=== PATIENT | male | born 1970 | race Caucasian/White ===

== ENCOUNTER 2023-12-13 19:36 | Inpatient (IN) | payer OTHER, SELFPAY ==
[2023-12-13] VITALS (8 sets, daily range): BP systolic 121–133; BP diastolic 73–80; BMI 30.7; BMI 29.4
[2023-12-13 11:58] LABS: % Basophils 0.5 % (0-2); % Eosinophils 43.6 % (0-6); % Immature Granulocytes 0.4 % (0-0.5); % Monocytes 4.7 % (1.7-9.3); % Neutrophils 41.8 % (42.2-75.2); Absolute Basophils 0.1 10^3/uL (0-0.2); Absolute Eosinophils 8.2 10^3/uL (0-0.7); Absolute Immature Granulocytes 0.1 10^3/uL (0-0.05); Absolute Lymphocytes 1.7 10^3/uL (1.2-3.4); Absolute Monocytes 0.9 10^3/uL (0.1-0.6); Absolute Neutrophils 7.9 10^3/uL (1.4-6.5); Hematocrit 40.5 % (39.0-52.0); Hemoglobin 13.7 g/dL (13.0-18.0); Mean Corp Hgb Conc. 33.8 g/dL (33.0-37.0); Mean Corpuscular Hgb 29.9 pg (27.0-31.0); Mean Corpuscular Volume 88.4 fL (80.0-94.0); Mean Platelet Volume 9.1 fL (7.4-10.4); Nucleated Red Blood Cells % 0 % (-); Platelet Count 356 10^3/uL (130-400); Red Blood Cell Count 4.58 10^6/uL (4.70-6.10); Red Cell Dist. Width 13.8 % (11.5-14.5); White Blood Cell Count 18.9 10^3/uL (4.8-10.8)
[2023-12-13 12:20] LABS: ALT (SGPT) 54 U/L (0-50); AST (SGOT) 53 U/L (17-59); Albumin 3.5 g/dl (3.5-5.0); Alkaline Phosphatase 77 U/L (38-126); Blood Urea Nitrogen 14 mg/dl (9-20); Calcium 8.9 mg/dl (8.4-10.2); Carbon Dioxide 26 mmol/L (22-30); Chloride 101 mmol/L (98-107); Glucose 115 mg/dl (70-99); Potassium 4.4 mmol/L (3.5-5.1); Sodium 133 mmol/L (135-145); Total Bilirubin 1.8 mg/dl (0.2-1.3); Total Protein 6.5 g/dl (6.3-8.2); eGFR > 60.00
--- NOTE | 2023-12-13 13:57 | ED.GENMED ---
History of Present Illness
General
Chief Complaint: Numbness
Time Seen by Provider: 12/13/23 13:42
Travel History
Have you had any contact with someone who has COVID-19?: No
Do you have any symptoms of coronavirus? Fever > 100 degrees, chills, cough, shortness of breath, sore throat, loss of taste or smell, muscle aches, or headache?: No
History of Present Illness
History of Present Illness:
53-year-old previously healthy male presents to the emergency department for evaluation of left hand numbness and weakness developing abruptly upon awakening at 2 AM today. He states initially it felt as though his arm and falling asleep however
the symptoms have not resolved. He does report left elbow discomfort as well. He relates a recent history of lower extremity fatigue and muscular weakness that has progressively worsened over the past 4 weeks. He states that he had to take
several breaks when ambulating across the hospital parking lot today. He has been seeing his primary care physician for this and was referred to a neurologist however has not been able to schedule appointment as of yet. He also notes for the past
6 to 8 months a history of recurrent sinusitis, most recent bout of this was early October. He has been treated with corticosteroids 8-9 times over the past 6 months.
Past History
Social History
Tobacco: Non-smoker
Living: with family
Employment: Employed
Review of Systems
Review of Systems
Allergies reviewed?: Yes
All Other Systems: ROS reviewed and negative except as documented in HPI and ROS
Phy Exam
Physical Exam
Physical Exam:
GEN: Well appearing, NAD, WDWN
HEENT: Oral mucosa moist, no scleral icterus, no nasal congestion
Cardiac: Regular rate
Lung: No respiratory distress, no tachypnea
MSK: No gross deformity or injuries
Skin: Good color, no pallor or jaundice, no rashes
Neuro: AO x3; CN II-XII grossly intact.
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
BLE strength: Hip flexors 4/5 bilat, all other mas 5/5 flexion/extension and symmetric
Reflexes: 1+ R patellar, 2+ L patellar
Sensation: Intact in all mas to light touch
Psych: Calm, cooperative
Course
Orders/Labs/Results
Orders:
Orders
12/13/23 11:51
C-Reactive Protein Urgent
Comment: ADD ON
CBC/With Diff [Complete Blood Count/With Diff] Urgent
CMP [Comprehensive Metabolic Panel] Urgent
Creatine Phosphokinase Urgent
Comment: ADD ON
Ferritin Routine
Comment: ADD ON
Folate Routine
Comment: ADD ON
TSH Reflex To Free T4 Routine
Comment: ADD ON
Vitamin B12 Routine
Comment: ADD ON
12/13/23 13:57
CT Head W/o Iv Contrast Urgent
Comment:
Reason For Exam: BLE/L arm weakness
12/13/23 15:28
Add On- LAB Routine
Tests Added?: folate, ferritin, TSH reflex
12/13/23 15:37
Consult Neurology [NEUROLOGY CONSULT] Urgent
Consulting Provider: Leonel Mike
Was physician already notified: Yes
Immune Globulin Per Pharmacy [Immune Globulin- Pharmacy To Place] 1 gram IV DIRECTED ONE
EMG [Electromyography] Routine
Reason for Exam: ? GBS
12/13/23 15:41
IRAD Cytology Routine
Date Specimen was Collected: 12/13/23
Time Specimen was Collected: 17:18
Source: CSF
Clinical Impression: AIRCRAFT CABIN CLEANER Lymphoma
12/13/23 15:42
Lorazepam [Ativan] 1 mg PO NOW STA
12/13/23 15:51
Add On- LAB Routine
Comments:: Please add to today's labs or draw as routine
Tests Added?: CRP, ANCA, MARILYN, ss-a, ss-B, CPK, Acetylchol office manager receptionist antibodies
12/13/23 16:00
MethylPREDNISolone. [Solu-Medrol] 1,000 mg 0.9% Sodium Chloride 250 ml [Nss] 250 ml IV Q24H
12/13/23 17:17
Lyme PCR, DNA [S] Urgent
Paraneoplastic Ab IgG, CSF [S] Urgent
12/13/23 17:20
Acid Fast Culture & Smear Urgent
RAJANI Source: C[facility]
Specimen Description:
Date Specimen was Collected: 12/13/23
Time Specimen was Collected: 17:18
CSF Cell Count Urgent
Date Specimen was Collected: 12/13/23
Time Specimen was Collected: 17:18
CSF Tube Number: 4
CSF Cell Count X Urgent
Date Specimen was Collected: 12/13/23
Time Specimen was Collected: 17:18
CSF Tube Number: 4
CSF VDRL Reflex To Titer [S] Urgent
Date Specimen was Collected: 12/13/23
Time Specimen was Collected: 17:18
CSF Tube Number: 2
Oligoclonal Band Profile [S] Urgent
Date Specimen was Collected: 12/13/23
Time Specimen was Collected: 17:18
CSF Tube Number: 2
Spinal Fluid Glucose Urgent
Date Specimen was Collected: 12/13/23
Time Specimen was Collected: 17:19
CSF Tube Number: 2
Spinal Fluid Protein Urgent
Date Specimen was Collected: 12/13/23
Time Specimen was Collected: 17:19
CSF Tube Number: 2
CSF Culture with Gram Stain Urgent
RAJANI Source: Csf
Specimen Description:
Date Specimen was Collected: 12/13/23
Time Specimen was Collected: 17:18
# of Tube: 3
Fungus Culture Urgent
RAJANI Source: Csf
Specimen Description:
Date Specimen was Collected: 12/13/23
Time Specimen was Collected: 17:18
12/13/23 17:50
MARILYN, IgG Reflex to HEp-2 [S] Urgent
ANCA - MPO/PR3 Ab Profile [S] Urgent
Acetylcholine Receptor Bind Ab [S] Urgent
SSA 52 and 60 (Ro)(JOSE) Ab,IgG [S] Urgent
SSB ([place])(JOSE) Ab, IgG [S] Urgent
12/13/23 18:00
Immune Globulin 30 Grams/300Ml [Gammagard] 30 grams in 300 ml IV PER PROTOCOL
12/13/23 18:43
Admit/Transfer Patient As Directed
Co-Sign Provider:
Level of Care: Inpatient admission
Assign to:: Telemetry
Physician / Group: hospitalist-Ruth
Diagnosis: GBS
Reason for Telemetry: Arrhythmia
Date to Stop Telemetry: 12/16/23
Time to Stop Telemetry: 11:00
Reason for Hospitalization: IVIG, pulse dose steroids, PT/OT
Expected length of stay greater than two midnights?: Yes
ELOS- Estimated Length of Stay in days: 4
I certify the patient meets the requirements for IP care: Yes
12/13/23 18:48
Code Status As Directed
Resuscitation Status: Full Code
12/14/23 18:00
Immune Globulin 30 Grams/300Ml [Gammagard] 30 grams in 300 ml IV PER PROTOCOL
12/15/23 18:00
Immune Globulin 30 Grams/300Ml [Gammagard] 30 grams in 300 ml IV PER PROTOCOL
12/16/23 11:00
DC Protocol for Telemetry ONCE
12/16/23 18:00
Immune Globulin 30 Grams/300Ml [Gammagard] 30 grams in 300 ml IV PER PROTOCOL
12/17/23 18:00
Immune Globulin 30 Grams/300Ml [Gammagard] 30 grams in 300 ml IV PER PROTOCOL
Abnormal Lab Results
12/13/23
11:51
WBC 18.9 H 10^3/uL
(4.8-10.8)
RBC 4.58 L 10^6/uL
(4.70-6.10)
Abs Immat Gran (auto) 0.1 H 10^3/uL
(0-0.05)
Absolute Neuts (auto) 7.9 H 10^3/uL
(1.4-6.5)
Absolute Monos (auto) 0.9 H 10^3/uL
(0.1-0.6)
Absolute Eos (auto) 8.2 H 10^3/uL
(0-0.7)
Neutrophils % 41.8 L %
(42.2-75.2)
Lymphocytes % 9.0 L %
(20.5-51.1)
Eosinophils % 43.6 H %
(0-6)
Sodium 133 L mmol/L
(135-145)
Creatinine 0.6 L mg/dL
(0.7-1.3)
Glucose 115 H mg/dl
(70-99)
Ferritin 508.0 H ng/ml
(17.9-464.0)
Total Bilirubin 1.8 H mg/dl
(0.2-1.3)
ALT 54 H U/L
(0-50)
C-Reactive Protein 66.00 H mg/L
(0.0-10.00)
12/13/23 11:51
12/13/23 11:51
Vital Signs
Initial and Last Documented VS:
Initial Vital Signs
Temp Pulse Resp BP Pulse Ox
98.3 F 111 16 128/77 98
12/13/23 11:34 12/13/23 11:34 12/13/23 11:34 12/13/23 11:34 12/13/23 11:34
Last Documented Vital Signs
Temp Pulse Resp BP Pulse Ox
98.2 F 97 22 133/79 98
12/13/23 19:46 12/13/23 20:45 12/13/23 20:45 12/13/23 20:00 12/13/23 11:34
Procedures
Lumbar Puncture
Indication for procedure:: polyneuropathy/diagnostic
Procedure completed by: Aniket Webber PA-C
Consent form signed: Yes
Anesthesia/sedation: 1% Lidocaine
Preparation: cleaned with Betadine
Position: sitting
Needle Size: 18 gauge
Needle Type: Lumbar Needle
Number of attempts: 1
Dressing applied to puncture site: bandaid
Complications: none
Additional information:
16mL obtained for diagnostic purposes
Pt instructed to lie supine for 60 minutes post procedure
MDM/Problems Addressed
MDM/Problems Addressed:
Etiology to the patient's neuropathy is not clear at this time. Neurology was consulted and saw the patient in the emergency department. Lumbar puncture was performed by myself at the bedside with good results. Will be admitted to the hospitalist
service for further treatment pending results of testing
*Critical Care Note
Total Time (30-74mins, 75-104mins- exclusive of procedures): Not Applicable
ED Attending Note
-
Portions of this chart may have been created with voice recognition software.� Occasional wrong word or��sound alike� substitutions may have occurred due to the inherent limitations of voice recognition software.
Discharge Plan
Departure
Patient Disposition: Admit
Date of Disposition: 12/13/23
Time of Disposition: 17:26
Admit to: Med/Surg
Presentation/result/management discussed w/ accepting MD/DO: Hospitalist
Patient with high blood pressure during this ER visit?: No
Discharge Problem:
Polyneuropathy
Interventions
Interventions:
*Risk Screen - Suicide Last Done: 12/13/23 17:07
*General Assessment Last Done: 12/13/23 17:07
*Neglect/Abuse Screening Last Done: 12/13/23 17:07
ED- Fall Risk Assessment Last Done: 12/13/23 17:07
*ED COVID-19 Vaccine History Last Done: 12/13/23 17:07
ED- Neurological Assessment Last Done: 12/13/23 17:07
--- NOTE | 2023-12-13 15:01 | CON.NEURO4 ---
Addendum entered and electronically signed by Leonel Mike MD 12/13/23 17:00:
Studies reviewed.
I have personally examined the patient. I reviewed and agree with the ORNITHOLOGY TEACHER's Note.
My addenda:
Awake, alert, interactive. No acute distress.
Speech intact.
Follows 2-step requests w/o difficulty. No tremor.
Extra-ocular movements grossly intact.
Facial movements full and symmetric. Hearing intact to normal conversational volume.
Normal UE movements bilaterally.
Reflexes absent at AJ, trace otherwise
Neck: full ROM.
Chest: no dyspnea
Heart: no JVD
Ext: (-) Clubbing, (-) Cyanosis, (-) Edema
IMPRESSIONS/RECOMMENDATIONS:
Abrupt onset of bilateral lower extremity weakness with length-dependent loss of large and small fiber sensation, subjective weakness which worsens with muscle use
check blood work for metabolic causes
consider MRI of brain due to nystagmus on exam with multiple positions
check EMG for nerve dysfunction, consider repetitive stimulation EMG
check LP with goal of protein and cells, check paraneoplastic causes
start Methylprednisolone 1 gm IV daily x 5
start IV IgG 0.4 mg/kg/day x 5 days
rehab evaluations
DVT prophylaxis
D/W patient / family / nursing
All questions answered.
Will continue to follow patient.
Original Note:
Documented by User: Tennille Hooper NP 12/13/23 16:33
Consultation - Neurology 4
-
CONSULTING PHYSICIAN: Leonel Mike MD
REFERRING PHYSICIAN: ER/Aniket Webber PA-C
DICTATED BY: NATTY Leger
DATE/TIME OF REQUEST: 12/13/23
DATE/TIME OF CONSULTATION: 12/13/23
Reason for Consultation: Weakness and numbness
History of Present Illness:
This is a 53-year-old right-handed male who has presented to the hospital with report of acute left hand numbness. Patient reports that starting in May 2023 he developed post-nasal drip that led to frequent sinusitis and lung infections, and a
diagnosis of adult-onset asthma. He has been on steroid treatments 9 times since May 2023. At the end of October 2023, he reports having another sinus infection and feeling unwell. He went on vacation with his family on 11/14/23 and reports new
onset extreme leg fatigue that day after walking an 18 [address]. The following days he reports walking significant distances and by 11/19/23 he had to use a golf cart because his legs felt too weak to walk more than short distances. The
weakness started in both legs at the same time, equally. In particular, his quadriceps and calf muscles feel weak. He cannot walk up a flight of steps without a grab rail to pull himself up with. He also reports developing numbness in both feet that
does not extend up the legs. He reports noticing some upper extremity weakness about two weeks ago, but this is much less prominent than his leg weakness. He denies any swallowing issues, but reports when all of his symptoms started he noticed
extreme acid reflux and has been on Prilosec, which has helped. Last night at 0200 (12/13/23) he woke up in the middle of the night due to left entire hand tingling. He has had his arm fall asleep 4x in his life while sleeping, but it usually
resolves in a timely manner, and this time is has persisted. It does not spread up the arm. He denies any overt hand weakness but cannot feel objects as well. No symptoms in his right hand. He denies any headache, dizziness, vision changes,
difficulty with bowel/bladder, speech difficulty, chest pain, palpitations, and shortness of breath. He denies any cramping, falls, or feeling off-balance. He has been undergoing an extensive outpatient workup by his PCP and reports a Lyme test has
been negative x2. [facility] outpatient labs from 11/22/23: HbA1c 5.8, vitamin B12 692, ESR 9.
Past Medical History: Moderate persistent adult-onset asthma, leukocytosis, elevated ALT, elevated hbA1c
Surgical History: Nasal polypectomy 2020
Family History: Reviewed and noncontributory.
Social History: Denies tobacco and illicit drug use. Occasional alcohol.
Allergies: No known allergies.
Home Medications: See below.
Review of Symptoms:
Patient denies any fever, headache, chest pain, shortness of breath, GI or symptoms.
�Per the HPI.�All systems are reviewed negative except above.
Physical Exam:
The patient is afebrile, abdomen is nondistended, breathing is unlabored, skin is warm and dry, no edema.
Neurologic Examination:
The patient is awake, alert and oriented x 3. He is able to follow commands and answer questions appropriately. There is no aphasia or dysarthria. On cranial nerve assessment, pupils are 3 mm bilateral, round and reactive to light and
accommodation. Visual mas are full. Extraocular movements are intact. +Nystagmus with upgaze and downgaze. Facial sensations are intact and bilaterally symmetrical, there is no facial asymmetry. Hearing is intact bilaterally to normal
conversation volume. Tongue palate and uvula are midline. No tongue fasciculations. Sternocleidomastoid strengths are full bilaterally. Motor strengths are 5/5 bilateral upper and lower extremities on medical research [place] scale. There is no
drift or involuntary movement noted. Deep tendon reflexes are 2+ bilateral upper, +2 patellar, and 1+ bilateral Achilles, and Babinski is absent bilaterally. Sensations vibration absent in bilateral toes, mildly diminished in bilateral knees. Pain
absent in distal toes. Cold intact. Vibration and cold intact in bilateral hands. There was no extinction noted on double simultaneous stimulation. Coordination is intact by finger to nose bilaterally.
Lab Results: See below.
Neuro Imaging: None
Differentials for the patient's presentation include:
1. Concern for Guillain [place]
2. Steroid myopathy possible but less likely
3. Chronic upper and lower respiratory infections, leukocytosis.
4. Nystagmus, unclear cause
5. Paraneoplastic syndrome possible
6. Myasthenia gravis less likely but possible
Patient has the following risk factors for their symptoms: Frequent infections, steroid usage
Recommendations:
-Start methylprednisone 1000mg IV daily x5 days
-Start IVIG 0.4mg/kg x5 days
-Lumbar puncture pending
-EMG ordered/pending
-If results are unremarkable, will obtain MRI brain w/and w/o contrast
-Checking acetylcholine receptor and MUSK antibodies
-PT/OT/ST evaluations
-DVT prophylaxis
-Will follow.
Discussed patient care with: Dr. Mike, the patient
Vital Signs and Labs
-
Vital Signs and Labs:
Vital Signs
Temp Pulse Resp BP Pulse Ox
98.3 F 100 15 130/73 98
12/13/23 11:34 12/13/23 14:45 12/13/23 14:45 12/13/23 14:02 12/13/23 11:34
Lab Results
12/13/23 11:51
12/13/23 11:51
Sodium 133 mmol/L (135-145) L 12/13/23 11:51
Potassium 4.4 mmol/L (3.5-5.1) 12/13/23 11:51
BUN 14 mg/dl (9-20) 12/13/23 11:51
Glucose 115 mg/dl (70-99) H 12/13/23 11:51
Calcium 8.9 mg/dl (8.4-10.2) 12/13/23 11:51
Medications
-
Active Medications
Generic Name Dose Route Start Last Admin
Trade Name Freq PRN Reason Stop Dose Admin
Methylprednisolone Sodium 258 mls @ 258 mls/hr 12/13/23 16:00
Succinate 1,000 mg/ Sodium IV 12/17/23 16:59
Chloride Q24H LINO
Immune Globulin 30 grams in 300 mls @ 0 mls/hr 12/13/23 18:00
Gammagard IV 12/14/23 17:59
PER PROTOCOL LINO
Protocol
Per Protocol
Immune Globulin 30 grams in 300 mls @ 0 mls/hr 12/14/23 18:00
Gammagard IV 01/11/24 17:59
PER PROTOCOL LINO
Protocol
Per Protocol
Immune Globulin 30 grams in 300 mls @ 0 mls/hr 12/15/23 18:00
Gammagard IV 01/12/24 17:59
PER PROTOCOL LINO
Protocol
Per Protocol
Immune Globulin 30 grams in 300 mls @ 0 mls/hr 12/16/23 18:00
Gammagard IV 01/13/24 17:59
PER PROTOCOL LINO
Protocol
Per Protocol
Immune Globulin 30 grams in 300 mls @ 0 mls/hr 12/17/23 18:00
Gammagard IV 01/14/24 17:59
PER PROTOCOL LINO
Protocol
Per Protocol
Home Medications
Medication Instructions Recorded
albuterol sulfate 2.5 mg/3 mL 2.5 mg inhalation R TID 12/13/23
(0.083 %) solution for nebulization Lung/Breathing Issues
albuterol sulfate 90 mcg/actuation 2 puff inhalation Q6HPRN PRN 12/13/23
aerosol inhaler shortness of breath
budesonide 0.5 mg/2 mL suspension 0.5 mg inhalation R BID 12/13/23
for nebulization Lung/Breathing Issues
montelukast 10 mg tablet 10 mg PO QPM Allergies 12/13/23

Documented by User: Leonel Mike MD 12/13/23 16:45
Consultation - Neurology 4
-
CONSULTING PHYSICIAN: Leonel Mike MD
REFERRING PHYSICIAN: ER/Aniket Webber PA-C
DICTATED BY: NATTY Leger
DATE/TIME OF REQUEST: 12/13/23
DATE/TIME OF CONSULTATION: 12/13/23
Reason for Consultation: Weakness and numbness
History of Present Illness:
This is a 53-year-old right-handed male who has presented to the hospital with report of acute left hand numbness.
Patient reports that starting in May 2023 he developed post-nasal drip that led to frequent sinusitis and lung infections, and a diagnosis of adult-onset asthma. He has been on steroid treatments 9 times since May 2023.
At the end of October 2023, he reports having another sinus infection and feeling unwell. He went on vacation with his family on 11/14/23 and reports new onset extreme leg fatigue that day after walking an 18 [address]. The following days he
reports walking significant distances and by 11/19/23 he had to use a golf cart because his legs felt too weak to walk more than short distances.
The weakness started in both legs at the same time, equally. In particular, his quadriceps and calf muscles feel weak. He cannot walk up a flight of steps without a grab rail to pull himself up with. He also reports developing numbness in both feet
that does not extend up the legs. He reports noticing some left upper extremity weakness about two weeks ago, but this is much less prominent than his leg weakness.
Last night at 0200 (12/13/23) he woke up in the middle of the night due to left entire hand tingling. He has had his arm fall asleep 4x in his life while sleeping, but it usually resolves in a timely manner, and this time is has persisted. It does
not spread up the arm. He denies any overt hand weakness but cannot feel objects as well. No symptoms in his right hand. He has been undergoing an extensive outpatient workup by his PCP and reports a Lyme test has been negative x2. [facility] outpatient
labs from 11/22/23: HbA1c 5.8, vitamin B12 692, ESR 9.
He denies any swallowing issues, but reports when all of his symptoms started he noticed extreme acid reflux and has been on Prilosec, which has helped. He denies any headache, dizziness, vision changes, difficulty with bowel/bladder, speech
difficulty, chest pain, palpitations, and shortness of breath. He denies any cramping, falls, or feeling off-balance.
Past Medical History: Moderate persistent adult-onset asthma, leukocytosis, elevated ALT, elevated hbA1c
Surgical History: Nasal polypectomy 2020
Family History: Reviewed and noncontributory.
Social History: Denies tobacco and illicit drug use. Occasional alcohol.
Allergies: No known allergies.
Home Medications: See below.
Review of Symptoms:
Patient denies any fever, headache, chest pain, shortness of breath, GI or symptoms.
�Per the HPI.�All systems are reviewed negative except above.
Physical Exam:
The patient is afebrile, abdomen is nondistended, breathing is unlabored, skin is warm and dry, no edema.
Neurologic Examination:
The patient is awake, alert and oriented x 3. He is able to follow commands and answer questions appropriately. There is no aphasia or dysarthria. On cranial nerve assessment, pupils are 3 mm bilateral, round and reactive to light and
accommodation. Visual mas are full. Extraocular movements are intact. +Nystagmus with upgaze and downgaze. Facial sensations are intact and bilaterally symmetrical, there is no facial asymmetry. Hearing is intact bilaterally to normal
conversation volume. Tongue palate and uvula are midline. No tongue fasciculations. Sternocleidomastoid strengths are full bilaterally. Motor strengths are 5/5 bilateral upper and lower extremities on medical research [place] scale. There is no
drift or involuntary movement noted. Deep tendon reflexes are 2+ bilateral upper, +2 patellar, and 1+ bilateral Achilles, and Babinski is absent bilaterally. Sensations vibration absent in bilateral toes, mildly diminished in bilateral knees. Pain
absent in distal toes. Cold intact. Vibration and cold intact in bilateral hands. There was no extinction noted on double simultaneous stimulation. Coordination is intact by finger to nose bilaterally.
Lab Results: See below.
Neuro Imaging: None
Differentials for the patient's presentation include:
1. Concern for Guillain [place]
2. Steroid myopathy possible but less likely
3. Chronic upper and lower respiratory infections, leukocytosis.
4. Nystagmus, unclear cause
5. Paraneoplastic syndrome possible
6. Myasthenia gravis less likely but possible
Patient has the following risk factors for their symptoms: Frequent infections, steroid usage
Recommendations:
-Start methylprednisone 1000mg IV daily x5 days
-Start IVIG 0.4mg/kg x5 days
-Lumbar puncture pending
-EMG ordered/pending
-If results are unremarkable, will obtain MRI brain w/and w/o contrast
-Checking acetylcholine receptor and MUSK antibodies
-PT/OT/ST evaluations
-DVT prophylaxis
-Will follow.
Discussed patient care with: Dr. Mike, the patient
[2023-12-13] MEDS: ATIVAN 1 MG PO (16:03)
[2023-12-13] MEDS: SOLU-MEDROL 258 MG IV (17:39)
[2023-12-13 17:56] LABS: Spinal Fluid Glucose 55 mg/dl (40-70); Spinal Fluid Protein 47 mg/dl (12-60)
[2023-12-13 18:39] LABS: CSF Clarity Clear; CSF Color Colorless; CSF Tube # 4; White Cell Count/CSF 0 mm^3 (0-5)
[2023-12-13 18:41] LABS: CSF Color Colorless; CSF Tube # 1; CSF Tube # Clarity Clear; White Blood Cell Count/CSF 0 mm^3 (0-5)
[2023-12-13] MEDS: GAMMAGARD 300 IV (18:44)
--- NOTE | 2023-12-13 18:50 | HPS.HSE ---
Family Physician
-
Family Physician: Randy Aguero
Chief Complaint
-
Worsening numbness/weakness
History of Present Illness
Patient is a 53-year-old male who had no medical history until 3 years ago when he had nasal polyp surgery. Since October 25, 2023 the patient has had 8 sinus infections, postnasal drip and 9 treatments with prednisone. Patient describes that his
legs and feet are numb, his legs feel heavy. 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 Now he can only stand for approximately 3 minutes. He has not been at work since November 10. At 2 AM this morning, his left hand
became numb and did not improve. He states that he also has weakness of his upper extremities. He came in for evaluation and treatment.
Medical History
Past Medical History
Past Medical History: Reports Other
Additional Past Medical History:
Recurrent sinus infections with asthmatic exacerbation
Past Surgical History: Reports Other
Additional Past Surgical History:
Nasal polyp surgery
Social History
Tobacco: Non-smoker
Alcohol: Former (Patient states that he used to drink 1 sixpack per day up until October 25, 2023. After that he has not had any alcohol.)
Drug: None
Family History
Family History: Other (None per patient)
Allergies / Home Medications
Allergies reflects when Allergies were last updated in [employer].
Home Medications with original date entered in [employer]
Allergy/Medication List:
Allergies
Allergy/AdvReac Type Severity Reaction Status Date / Time
No Known Allergies Allergy Verified 12/13/23 11:34
Home Medications
albuterol sulfate 2.5 mg/3 mL (0.083 %) solution for nebulization 2.5 mg inhalation R TID Lung/Breathing Issues 12/13/23
albuterol sulfate 90 mcg/actuation aerosol inhaler 2 puff inhalation Q6HPRN PRN shortness of breath 12/13/23
budesonide 0.5 mg/2 mL suspension for nebulization 0.5 mg inhalation R BID Lung/Breathing Issues 12/13/23
montelukast 10 mg tablet 10 mg PO QPM Allergies 12/13/23
Review of Systems
-
History Source: Patient
A 12 point ROS was completed and negative except as noted: Yes
Constitutional: Denies Fever or Chills
EENT: Reports Other (Recurrent sinus infections)
Respiratory: Reports Cough and Trouble Breathing
Cardiac: Denies Chest Pain or Palpitations
Abdomen/GI: Denies Abdominal Pain, Nausea, Vomiting, Diarrhea or Constipated
: Reports No Symptoms; Denies Dysuria
Musculoskeletal: Denies Edema
Skin: Reports No Symptoms
Neurological: Reports Weakness (Heaviness to the legs, numbness to the arms)
Endocrine: Reports No Symptoms
Hematologic/Lymphatic: Reports No Symptoms
Psych: Reports No Symptoms
Physical Exam
Vital Signs
Vital Signs
Temp Pulse Resp BP Pulse Ox
98.3 F 103 18 130/73 98
12/13/23 11:34 12/13/23 16:15 12/13/23 16:15 12/13/23 14:02 12/13/23 11:34
Physical Exam
General: Well Developed, Well Nourished and No Apparent Distress
HEENT: NormoCephalic and Anicteric; No Oxygen
Respiratory: Rhonchi (Clears with coughing)
Cardiac: S1/S2 and Regular Rhythm; No Murmur
GI: Soft, Non Tender, Non Distended and Normal Bowel Sounds
Musculoskeletal: No Clubbing, No Cyanosis and No Edema
Skin: Warm and Dry; No Rash
Neuro: Awake and Alert; No Nonfocal/grossly intact (Decreased motor strength 3/5 x 4 extremities)
Psych: Calm
Laboratory Results
-
12/13/23 11:51
12/13/23 11:51
Laboratory Results
Total Bilirubin 1.8 mg/dl (0.2-1.3) H 12/13/23 11:51
AST 53 U/L (17-59) 12/13/23 11:51
ALT 54 U/L (0-50) H 12/13/23 11:51
Alkaline Phosphatase 77 U/L (38-126) 12/13/23 11:51
Impression/Plan
-
Patient is a 53-year-old male
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
neurology, lumbar puncture done--patient starting on IVIG and pulse dose Solu-Medrol--PT/OT/speech--will likely need EMG/nerve conduction study and MRI--consider physical medicine and rehab evaluation
Recurrent sinus infections status post nasal polyp surgery in the past--patient's ENT is in [place]--he sees Dr. Silva here for pulmonary--patient states that he is to take his nebulizers in a specific order (albuterol, 3% sodium chloride,
Pulmicort)--hold antibiotics for now--consider ENT evaluation if needed
DVT prophylaxis--Lovenox
CODE STATUS--full code
[2023-12-13 19:39] LABS: Red Cell Count/CSF 1 mm^3
[2023-12-13 19:41] LABS: TSH Reflex To Free T4 2.01 uIU/ml (0.47-4.68)
[2023-12-13 19:54] LABS: Red Cell Count/CSF 5 mm^3
[2023-12-13 20:17] LABS: Folate 11.7 ng/ml (2.76-20); Vitamin B12 518 pg/ml (239-931)
[2023-12-13] MEDS: DESYREL 100 MG PO (22:26)
[2023-12-13 22:38] LABS: Creatine Phosphokinase 984 U/L (55-170)
[2023-12-13] MEDS: PULMICORT 0.5 MG INH (22:50)
[2023-12-13] MEDS: VENTOLIN NEBULES 2.5 MG INH (22:50)
[2023-12-13] MEDS: SODIUM CHLORIDE 3% FOR INHALATION 1 VIAL INH (22:50)
[2023-12-14] VITALS (14 sets, daily range): BP systolic 115–135; BP diastolic 72–83; O2SAT 95; BMI 29.4
[2023-12-14] MEDS: SINGULAIR 10 MG PO ×2 (00:20→17:24)
[2023-12-14 05:46] LABS: % Basophils 0.3 % (0-2); % Eosinophils 2.3 % (0-6); % Immature Granulocytes 0.5 % (0-0.5); % Lymphocytes 12.4 % (20.5-51.1); % Monocytes 1.7 % (1.7-9.3); % Neutrophils 82.8 % (42.2-75.2); Absolute Eosinophils 0.2 10^3/uL (0-0.7); Absolute Lymphocytes 0.9 10^3/uL (1.2-3.4); Absolute Monocytes 0.1 10^3/uL (0.1-0.6); Absolute Neutrophils 6.2 10^3/uL (1.4-6.5); Hematocrit 37.3 % (39.0-52.0); Hemoglobin 12.7 g/dL (13.0-18.0); Mean Corpuscular Hgb 29.3 pg (27.0-31.0); Mean Corpuscular Volume 86.1 fL (80.0-94.0); Mean Platelet Volume 9.3 fL (7.4-10.4); Nucleated Red Blood Cells % 0 % (-); Platelet Count 336 10^3/uL (130-400); Red Blood Cell Count 4.33 10^6/uL (4.70-6.10); Red Cell Dist. Width 13.6 % (11.5-14.5); White Blood Cell Count 7.5 10^3/uL (4.8-10.8)
[2023-12-14 06:06] LABS: ALT (SGPT) 55 U/L (0-50); AST (SGOT) 39 U/L (17-59); Albumin 3.1 g/dl (3.5-5.0); Alkaline Phosphatase 72 U/L (38-126); Blood Urea Nitrogen 14 mg/dl (9-20); Calcium 9.2 mg/dl (8.4-10.2); Carbon Dioxide 26 mmol/L (22-30); Chloride 100 mmol/L (98-107); Estimated Creatinine Clearance > 125 ml/min; Glucose 170 mg/dl (70-99); Magnesium 2.3 mg/dl (1.6-2.3); Potassium 4.5 mmol/L (3.5-5.1); Sodium 135 mmol/L (135-145); Total Bilirubin 1.1 mg/dl (0.2-1.3); Total Protein 6.3 g/dl (6.3-8.2); eGFR > 60.00
[2023-12-14 06:28] LABS: Creatine Phosphokinase 709 U/L (55-170)
[2023-12-14 06:35] LABS: TSH 0.56 uIU/ml (0.47-4.68)
[2023-12-14 06:54] LABS: Vitamin B12 550 pg/ml (239-931)
--- NOTE | 2023-12-14 07:40 | PTCARENOTE ---
Patient arrived on unit @2231 via stretcher from ED. Patient ambulate from stretcher to bed. AAOx3 denies any pain or discomfort. Neurological check completed, skin assessment completed, oriented to unit. WOOD CALKER made aware of MSAS protocol that was
triggered, pt last drink was 10/25/23. WOOD CALKER okay with not initiating MSAS protocol.
[2023-12-14] MEDS: VENTOLIN NEBULES 2.5 MG INH ×3 (08:05→19:49)
[2023-12-14] MEDS: SODIUM CHLORIDE 3% FOR INHALATION 1 VIAL INH ×3 (08:05→19:49)
[2023-12-14] MEDS: PULMICORT 0.5 MG INH ×2 (08:05→19:49)
--- NOTE | 2023-12-14 08:45 | PTOTSP ---
Speech Language Pathology
Pt seen for clinical bedside swallow evaluation. Pt reported recent jaw fatigue at end of meals when eating something tough, such as a hoagie or chicken breast. He denied any other swallowing difficulties. P.O. trials of puree, regular solids,
and thin liquids provided. Adequate mastication, bolus formation, and A-P transit noted with no oral residue. No overt signs of aspiration. Discussed signs of dysphagia to look for.
Recommend:
(1) Continue regular solids/thin liquids
(2) General aspiration precautions
(3) Meds as tolerated
(4) EMPLOYMENT LEGAL ASSISTANT to continue to follow
--- NOTE | 2023-12-14 12:14 | W.PN.NEURO.1 ---
Today's Communication / Plan
-
Await additional blood work for metabolic causes
check EMG for nerve dysfunction, consider repetitive stimulation EMG
Continue rehabilitation evaluations
started Methylprednisolone 1 gm IV daily x 3
started IV IgG 0.4 mg/kg/day x 3 days
Neuro Assessment/Plan
Assessment
IMPRESSIONS/RECOMMENDATIONS:
Abrupt onset of bilateral lower extremity weakness, new left hand sensation change, with length-dependent loss of large and small fiber sensation, subjective weakness which worsens with muscle use
MRI of brain unremarkable
MRI of cervical spine unremarkable
LP unremarkable
Differential diagnosis includes peripheral neuropathy, less likely at this point that the patient has Guillain-Umana� syndrome based on unremarkable lumbar puncture
Plan
Await additional blood work for metabolic causes
check EMG for nerve dysfunction, consider repetitive stimulation EMG
Continue rehabilitation evaluations
started Methylprednisolone 1 gm IV daily x 3
started IV IgG 0.4 mg/kg/day x 3 days
Will follow.
Subjective/Objective
Subjective Data
Date of Service: December 14, 2023
Improved foot numbness and left hand sensation change as well as strength.
Objective Data
Vital Signs
Temp Pulse Resp BP Pulse Ox
36.6 C 92 18 120/73 95
12/14/23 08:08 12/14/23 08:14 12/14/23 08:14 12/14/23 08:08 12/14/23 08:14
Lab Results
12/14/23 05:13
12/14/23 05:13
Sodium 135 mmol/L (135-145) 12/14/23 05:13
Potassium 4.5 mmol/L (3.5-5.1) 12/14/23 05:13
BUN 14 mg/dl (9-20) 12/14/23 05:13
Glucose 170 mg/dl (70-99) H 12/14/23 05:13
Calcium 9.2 mg/dl (8.4-10.2) 12/14/23 05:13
Vitamin B12 550 pg/ml (239-931) 12/14/23 05:13
Patient Allergies
No Known Allergies Allergy (Verified 12/13/23 11:34)
Review of Systems
-
History Source: Patient
All other systems: Reviewed and negative
EENT: Negative Decreased Vision or Swallowing Difficulty
Respiratory: Negative Trouble Breathing
Cardiac: Negative Chest Pain
Abdomen/GI: Negative Incontinence of Stool
Genitourinary: Negative Incontinence
Musculoskeletal: Negative Back Pain or Neck Pain
Neuro: Negative Dizzy or Headache
Physical Exam
-
General: No Apparent Distress and Appears Stated Age
Eyes: Round OU, Mayo Conjunctivae and No Ptosis
HEENT: Anicteric and Moist Mucous Membranes
Neck: Full Range of Motion
Respiratory: No Dyspnea
Cardiac: No JVD
GI: Non-distended
Skin: Unremarkable
Extremities: No Clubbing, No Cyanosis and No Edema
Psych: Intact Judgement/Insight
Extended Neurological Exam
Mood & Affect: Mood Unremarkable and Affect Unremarkable
Attention Span & Concentration: Awake, Alert, Interactive and No Difficulty with 2 Step Request
Memory: Unremarkable
Tremor: Hand Tremor Absent and Head Tremor Absent
Speech: Quality Unremarkable and Quantity Unremarkable
Cranial Nerve II: Left Eye: Pupillary Size Unremarkable and Visual Gibbs Grossly Intact
Cranial Nerve II: Right Eye: Pupillary Size Unremarkable and Visual Gibbs Grossly Intact
Cranial Nerves III, IV, : Extraocular Movement: Grossly Intact
Cranial Nerve VII: Facial Symmetry: Normal Facial Symmetry
Cranial Nerve VIII: Hearing: Unremarkable Hearing to Normal Conversational Volume
Cranial Nerve XI: Shoulder Shrug: Unremarkable
Muscle Strength, Overall: Other (5- out of 5 proximally in bilateral lower extremities)
Muscle Bulk & Tone: Bulk Unremarkable and Tone Unremarkable
Pronator Drift: No Drift in Upper Extremities
Deep Tendon Reflexes: Unremarkable Throughout
Cold Sensation: Unremarkable
Vibration Sensation: Unremarkable
Touch Sensation: Unremarkable
Coordination: [id number] Testing Unremarkable
Babinski Sign: Absent Bilaterally
Gait & Station: Romberg Test Negative
Modified Winn Score (MRS)
-
MRS Score:
Data Reviewed
-
MRI Head: Report Reviewed and Image Reviewed
MRI Cervical Spine: Report Reviewed and Image Reviewed
Labs: Ordered, Pending and Report Reviewed
EMG: Ordered
Reviewed with: Physician, Patient and Family
Old Records: Summarized
[2023-12-14] MEDS: TYLENOL 650 MG PO (13:32)
[2023-12-14] MEDS: BENADRYL 50 MG IV (13:32)
[2023-12-14] MEDS: GAMMAGARD 300 IV (14:03)
--- NOTE | 2023-12-14 15:18 | W.PN.HOSP.TC ---
Today's Communication/Plan
-
apprec neuro
studies still pending
cont IVIG and pulse dose steroids
Assessment / Plan
Assessment / Plan
Patient is a 53-year-old male
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
neurology, lumbar puncture done and some results still pending--patient starting on IVIG and pulse dose Solu-Medrol--doing well in PT/OT/speech--EMG/nerve conduction study pending and MRI brain and C spine essentially negative
Recurrent sinus infections status post nasal polyp surgery in the past--patient's ENT is in [place]--he sees Dr. Silva here for pulmonary--patient states that he is to take his nebulizers in a specific order (albuterol, 3% sodium chloride,
Pulmicort)--hold antibiotics for now--consider ENT evaluation if needed
DVT prophylaxis--Lovenox
CODE STATUS--full code
Anticipated Discharge: > 48 hours
Subjective/Interval History
-
Date of Service: December 14, 2023
pt left hand numbness improving
Objective Data
-
Labs:
Laboratory Results
12/14/23
05:13
WBC 7.5
Hgb 12.7 L
Hct 37.3 L
Plt Count 336
Sodium 135
Potassium 4.5
Chloride 100
Carbon Dioxide 26
BUN 14
Creatinine 0.5 L
Glucose 170 H
Calcium 9.2
Total Bilirubin 1.1
AST 39
ALT 55 H
Alkaline Phosphatase 72
Vital Signs:
max temp for 24 hours
12/13/23
11:34
Temp 98.3 F
Vital Signs
Temp Pulse Resp BP Pulse Ox
97.8 F 109 14 123/73 95
12/14/23 08:08 12/14/23 15:01 12/14/23 14:01 12/14/23 15:01 12/14/23 14:01
Review of Systems
-
All other systems: Reviewed and negative
Physical Exam
-
General: Well Developed, Well Nourished and No Apparent Distress
HEENT: Normocephalic and Atraumatic
Respiratory: Clear to Auscultation; Negative Wheezes or Rhonchi
Cardiac: Regular Rhythm and S1/S2; Negative Murmur
GI: Soft, Nontender, Nondistended and Normal Bowel Sounds
Musculoskeletal: No Clubbing, No Cyanosis and No Edema
Neuro: Awake
[2023-12-14] MEDS: SOLU-MEDROL 258 MG IV (16:34)
[2023-12-14] MEDS: LOVENOX 40 MG SC (17:23)
--- NOTE | 2023-12-14 18:10 | NS.EMG ---
Electromyogram (EMG) Study
EMG/NCS Summary
Impressions: 1. Acute axonal motor and sensory peripheral polyneuropathy. The needle EMG shows acute muscle denervation in the tibialis anterior, medial gastrocnemius, and peroneus longus bilaterally. The vastus medialis and TFL is normal
bilaterally, as well as the left gluteus hilaria and left lumbar paraspinal musculature. Motor and sensory nerve conduction abnormalities are as reported in the tabular data.
2. Moderate left median neuropathy at the wrist (carpal tunnel syndrome).
3. Normal left tibial motor nerve repetitive stimulation technique. The left ulnar motor RNS study was unreliable because electrode application.
Full dictated report and tabular data to follow.
[2023-12-14] MEDS: MELATONIN 5 MG PO (20:04)
[2023-12-15] VITALS (11 sets, daily range): BP systolic 113–136; BP diastolic 51–78; PULSE 103; O2SAT 94
[2023-12-15 05:44] LABS: Hematocrit 35.3 % (39.0-52.0); Hemoglobin 11.7 g/dL (13.0-18.0); Mean Corp Hgb Conc. 33.1 g/dL (33.0-37.0); Mean Corpuscular Hgb 29.3 pg (27.0-31.0); Mean Corpuscular Volume 88.5 fL (80.0-94.0); Mean Platelet Volume 9.4 fL (7.4-10.4); Platelet Count 343 10^3/uL (130-400); Red Blood Cell Count 3.99 10^6/uL (4.70-6.10); Red Cell Dist. Width 13.7 % (11.5-14.5); White Blood Cell Count 12.3 10^3/uL (4.8-10.8)
[2023-12-15 06:11] LABS: ALT (SGPT) 50 U/L (0-50); AST (SGOT) 28 U/L (17-59); Alkaline Phosphatase 63 U/L (38-126); Blood Urea Nitrogen 22 mg/dl (9-20); Calcium 9.1 mg/dl (8.4-10.2); Carbon Dioxide 28 mmol/L (22-30); Chloride 103 mmol/L (98-107); Estimated Creatinine Clearance > 125 ml/min; Glucose 161 mg/dl (70-99); Magnesium 2.5 mg/dl (1.6-2.3); Sodium 139 mmol/L (135-145); Total Bilirubin 0.7 mg/dl (0.2-1.3); Total Protein 6.6 g/dl (6.3-8.2); eGFR > 60.00
--- NOTE | 2023-12-15 07:19 | W.PN.NEURO.1 ---
Today's Communication / Plan
-
-Check MRI T and L spine with contrast
-Stop steroids
-Continue IVIG day 3/
-Monitor respiratory status and telemetry
-PT/OT
-Bowel regimen
Will follow
Neuro Assessment/Plan
Assessment
MRI brain does not show any abnormalities within the brain or brainstem
MRI of the cervical spine shows no intrinsic cervical cord lesion does show degenerative changes without any significant spinal stenosis, incidental note of a homogeneous marrow signal intensity which I do not believe this is all related to his
presentation
EMG demonstrates an acute motor and sensory polyneuropathy
Lumbar puncture showed normal protein of 47 no significant white blood cells and no evidence of infection
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
recall that a substantial proportion of cases of Guillain-Umana� will have a normal protein on CSF and can also have normal reflexes. Patient also had transient viral illness with upper respiratory and GI symptoms at end/middle of October
Ddx includes thoracic or lumbar spine lesion like transverse myelitis
Subjective/Objective
Subjective Data
Date of Service: December 15, 2023
Weakness improving, bowel and bladder okay some constipating, no dysphagia
Objective Data
Vital Signs
Temp Pulse Resp BP Pulse Ox
98.2 F 88 18 136/78 94
12/15/23 03:58 12/15/23 03:58 12/15/23 03:58 12/15/23 03:58 12/15/23 03:58
Lab Results
12/15/23 05:28
12/15/23 05:28
Sodium 139 mmol/L (135-145) 12/15/23 05:28
Potassium 4.0 mmol/L (3.5-5.1) 12/15/23 05:28
BUN 22 mg/dl (9-20) H 02/01/24 05:28
Glucose 161 mg/dl (70-99) H 12/15/23 05:28
Calcium 9.1 mg/dl (8.4-10.2) 12/15/23 05:28
Vitamin B12 550 pg/ml (239-931) 12/14/23 05:13
Patient Allergies
No Known Allergies Allergy (Verified 12/13/23 11:34)
Review of Systems
-
History Source: Patient
All other systems: Reviewed and negative
Constitutional: No Symptoms
EENT: No Symptoms Reported
Respiratory: No Symptoms
Cardiac: No Symptoms
Abdomen/GI: No Symptoms
Genitourinary: No Symptoms
Musculoskeletal: No Symptoms
Skin: No Symptoms
Neuro: Weakness, Numbness and Ataxia
Endocrine: No Symptoms
Hematologic / Lymphatic: No Symptoms
Allergy / Immunology: No Symptoms
Physical Exam
-
General: No Apparent Distress and Comfortable
Eyes: No Ptosis
HEENT: Normocephalic
Neck: No Bruits Bilaterally
Respiratory: Clear to Auscultation and No Dyspnea
Cardiac: Regular Rhythm and No Murmur
GI: Normal Bowel Sounds, Soft and Non-tender
Skin: Unremarkable
Extremities: No Clubbing
Psych: Intact Judgement/Insight; Negative Confused
Extended Neurological Exam
Mood & Affect: Mood Unremarkable and Affect Unremarkable
Attention Span & Concentration: Awake, Alert and Interactive
Memory: Unremarkable
Tremor: Hand Tremor Absent
Involuntary Movement: None
Speech: Quality Unremarkable and Quantity Unremarkable; Negative Expressive Aphasia, Receptive Aphasia or Dysarthric
Cranial Nerve II: Left Eye: Pupillary Reactivity Unremarkable, Pupillary Size Unremarkable and Visual Gibbs Intact
Cranial Nerve II: Right Eye: Pupillary Reactivity Unremarkable, Pupillary Size Unremarkable and Visual Gibbs Intact
Cranial Nerves III, IV, : Extraocular Movement: Extraocular Movement Full in all Directions
Cranial Nerve V: Facial Sensation: Facial Sensation Unremarkable to Cold
Muscle Strength, Overall: Full Throughout
Muscle Bulk & Tone: Bulk Unremarkable and Tone Unremarkable
Pronator Drift: No Drift in Upper Extremities
Deep Tendon Reflexes: Other (Absent achilles, present 2+ symmetric biceps triceps patella no clonus)
Cold Sensation: Unremarkable
Vibration Sensation: Reduced Moderately Distally
Touch Sensation: Unremarkable
Coordination: [id number] Testing Unremarkable
Babinski Sign: Absent Bilaterally
Modified Perico Score (MRS)
-
MRS Score:
Data Reviewed
-
MRI Head: Report Reviewed and Image Reviewed
MRI Cervical Spine: Report Reviewed and Image Reviewed
Labs: Report Reviewed
EMG: Report Reviewed
[2023-12-15] MEDS: VENTOLIN NEBULES 2.5 MG INH ×2 (08:17→19:19)
[2023-12-15] MEDS: SODIUM CHLORIDE 3% FOR INHALATION 1 VIAL INH ×2 (08:17→19:19)
[2023-12-15] MEDS: PULMICORT 0.5 MG INH ×2 (08:17→19:19)
--- NOTE | 2023-12-15 11:28 | CM ---
Patient seen at bedside with physician. Patient on day 3 of 5 days for medication and patient stated that he was walking better and was understanding of the therapy recommendation for outpatient therapy when discharged at this time. Patient will
need script when discharged to follow up with outpatient therapy. CM will continue to follow for discharge planning needs.
Plan; home with outpatient therapy to follow up
--- NOTE | 2023-12-15 11:42 | W.PN.HOSP.TC ---
Today's Communication/Plan
-
finish IVIG and pulse steroids
Assessment / Plan
Assessment / Plan
Patient is a 53-year-old male
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
neurology, lumbar puncture done and some results still pending--patient starting on IVIG and pulse dose Solu-Medrol (day 3 of 5)--doing well in PT/OT/speech, will need outpt (script left on chart)--EMG/nerve conduction study pending and MRI brain
and C spine essentially negative
Recurrent sinus infections status post nasal polyp surgery in the past--patient's ENT is in [place]--he sees Dr. Silva here for pulmonary--patient states that he is to take his nebulizers in a specific order (albuterol, 3% sodium chloride,
Pulmicort)--hold antibiotics for now--consider ENT evaluation if needed
DVT prophylaxis--Lovenox
CODE STATUS--full code
Anticipated Discharge: > 48 hours
Subjective/Interval History
-
Date of Service: December 15, 2023
pt seems to be improving
Objective Data
-
Labs:
Laboratory Results
12/15/23
05:28
WBC 12.3 H
Hgb 11.7 L
Hct 35.3 L
Plt Count 343
Sodium 139
Potassium 4.0
Chloride 103
Carbon Dioxide 28
BUN 22 H
Creatinine 0.6 L
Glucose 161 H
Calcium 9.1
Total Bilirubin 0.7
AST 28
ALT 50
Alkaline Phosphatase 63
Vital Signs:
max temp for 24 hours
12/15/23
03:58
Temp 98.2 F
Vital Signs
Temp Pulse Resp BP Pulse Ox
98 F 101 16 123/68 98
12/15/23 11:19 12/15/23 11:19 12/15/23 11:19 12/15/23 11:19 12/15/23 11:19
I&O
12/14/23 12/15/23 12/16/23
06:59 06:59 06:59
Intake Total 2169
Balance 2169
Review of Systems
-
All other systems: Reviewed and negative
Physical Exam
-
General: Well Developed, Well Nourished and No Apparent Distress
HEENT: Normocephalic and Atraumatic
Respiratory: Clear to Auscultation; Negative Wheezes, Rales, Rhonchi or Crackles
Cardiac: Regular Rhythm and S1/S2; Negative Murmur
GI: Soft, Nontender, Nondistended and Normal Bowel Sounds
Musculoskeletal: No Clubbing, No Cyanosis and No Edema
Neuro: Awake
Psych: Calm
[2023-12-15] MEDS: TYLENOL 650 MG PO (12:05)
[2023-12-15] MEDS: BENADRYL 50 MG IV (12:05)
--- NOTE | 2023-12-15 13:05 | PTCARENOTE ---
Patient OOB to bathroom with a steady gait. Patient took shower. Patient has no c/o pain, but c/o numbness in b/l feet.
--- NOTE | 2023-12-15 14:15 | PTCARENOTE ---
Immune Globulin started at 1415 and ended at 1645. Patient had no c/o pain. BP/HR obtained Q30 mins and remained stable throughout infusion. Spouse at bedside.
[2023-12-15] MEDS: GAMMAGARD 300 IV (14:17)
[2023-12-15] MEDS: SODIUM CHLORIDE 3% FOR INHALATION INH (15:54)
[2023-12-15] MEDS: VENTOLIN NEBULES INH (15:54)
[2023-12-15] MEDS: SINGULAIR 10 MG PO (16:48)
[2023-12-15] MEDS: LOVENOX 40 MG SC (16:48)
[2023-12-15] MEDS: MELATONIN 5 MG PO (20:59)
[2023-12-15 21:56] LABS: ANA, IgG Reflex to HEp-2 None Detected (None Detected)
[2023-12-16] VITALS (12 sets, daily range): BP systolic 103–130; BP diastolic 62–74; PULSE 89; O2SAT 97
[2023-12-16 06:03] LABS: Hematocrit 32.5 % (39.0-52.0); Hemoglobin 10.6 g/dL (13.0-18.0); Mean Corp Hgb Conc. 32.6 g/dL (33.0-37.0); Mean Corpuscular Hgb 29.1 pg (27.0-31.0); Mean Corpuscular Volume 89.3 fL (80.0-94.0); Mean Platelet Volume 9.5 fL (7.4-10.4); Platelet Count 287 10^3/uL (130-400); Red Blood Cell Count 3.64 10^6/uL (4.70-6.10); Red Cell Dist. Width 13.9 % (11.5-14.5); White Blood Cell Count 8.4 10^3/uL (4.8-10.8)
[2023-12-16 06:24] LABS: Blood Urea Nitrogen 29 mg/dl (9-20); Calcium 8.8 mg/dl (8.4-10.2); Carbon Dioxide 25 mmol/L (22-30); Chloride 103 mmol/L (98-107); Estimated Creatinine Clearance > 125 ml/min; Glucose 107 mg/dl (70-99); Magnesium 2.6 mg/dl (1.6-2.3); Potassium 3.9 mmol/L (3.5-5.1); Sodium 137 mmol/L (135-145); eGFR > 60.00
[2023-12-16 07:27] LABS: SSA 52 (Ro)(ENA) Ab, IgG 1 AU/mL (0-40); SSA 60 (Ro)(ENA) Ab, IgG 1 AU/mL (0-40); SSB (La)(ENA) Ab, IgG 0 AU/mL (0-40)
[2023-12-16] MEDS: VENTOLIN NEBULES 2.5 MG INH ×3 (07:38→19:17)
[2023-12-16] MEDS: SODIUM CHLORIDE 3% FOR INHALATION 1 VIAL INH ×3 (07:38→19:17)
[2023-12-16] MEDS: PULMICORT 0.5 MG INH ×2 (07:38→19:17)
--- NOTE | 2023-12-16 07:50 | W.PN.NEURO.1 ---
Today's Communication / Plan
-
-IVIG day 4/5 today, finish day 03/18 tomorrow morning
-Do not feel he would need surgical consultation for the observed thoracic and lumbar spine stenoses given these are felt to be asymptomatic
-Remain off steroids
-Oncology consultation I feel would be helpful for the bone marrow abnormalities, may require repeated imaging, potential PET scan, or biopsy that I think could be deferred to outpatient setting
Will follow
Neuro Assessment/Plan
Assessment
MRI brain does not show any abnormalities within the brain or brainstem
MRI of the cervical spine shows no intrinsic cervical cord lesion does show degenerative changes without any significant spinal stenosis, incidental note of a homogeneous marrow signal intensity which I do not believe this is all related to his
presentation
EMG demonstrates an acute motor and sensory polyneuropathy
Lumbar puncture showed normal protein of 47 no significant white blood cells and no evidence of infection
MARILYN negative, SSA and SSB negative, acetylcholine Ab negative
ANCA pending, cryoglobulins pending
B12 and TSH normal
CSF cytology no evidence for neoplastic or infectious process
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
recall that a substantial proportion of cases of Guillain-Umana� will have a normal protein on CSF and can also have normal reflexes uncommonly. Patient also had transient viral illness with upper respiratory and GI symptoms at end/middle of
October. Time course of fairly acute onset of symptoms, then hitting a peak severity and now slowly improving would also fit with Guillan [place].
MRI T and L spine show no transverse myelitis. There is significant stenosis of the central spinal canal and foraminal stenoses in the thoracic and lumbar areas, but patient's lack of back pain, no trauma history, acute onset of symptoms, along
with absence of myelopathic feautres on neurologic exam and EMG supportive of an acute neuropathy all argue strongly against any of the observed imaging pathology on MRI spine playing any role in his active symptoms.
MRI does not abnormal bone marrow signal indicating either benign etiology versus bone such as malignant bone marrow proliferation disorder
No systemic symptoms recently, did have a lot of sinusitis problems last year
Subjective/Objective
Subjective Data
Date of Service: December 16, 2023
No acute events, feels walking is a little better, no worsening of arm or leg strength or new paresthesias, no back pain, no urinary or bowel incontinence or urinary retention
Objective Data
Vital Signs
Temp Pulse Resp BP Pulse Ox
97.4 F 82 16 115/66 98
12/16/23 07:40 12/16/23 07:41 12/16/23 07:41 12/16/23 07:40 12/16/23 07:41
Lab Results
12/16/23 05:32
12/16/23 05:32
Sodium 137 mmol/L (135-145) 12/16/23 05:32
Potassium 3.9 mmol/L (3.5-5.1) 12/16/23 05:32
BUN 29 mg/dl (9-20) H 12/16/23 05:32
Glucose 107 mg/dl (70-99) H 12/16/23 05:32
Calcium 8.8 mg/dl (8.4-10.2) 12/16/23 05:32
Vitamin B12 550 pg/ml (239-931) 12/14/23 05:13
Patient Allergies
No Known Allergies Allergy (Verified 12/13/23 11:34)
Review of Systems
-
History Source: Patient
All other systems: Reviewed and negative
Constitutional: No Symptoms
EENT: No Symptoms Reported
Respiratory: No Symptoms
Cardiac: No Symptoms
Abdomen/GI: No Symptoms
Genitourinary: No Symptoms
Musculoskeletal: No Symptoms
Skin: No Symptoms
Neuro: No Symptoms and Weakness
Endocrine: No Symptoms
Hematologic / Lymphatic: No Symptoms
Allergy / Immunology: No Symptoms
Physical Exam
-
General: Comfortable
Eyes: No Ptosis
HEENT: Normocephalic
Neck: No Bruits Bilaterally
Respiratory: Clear to Auscultation
Cardiac: Regular Rhythm
GI: Normal Bowel Sounds
Skin: Unremarkable
Extremities: No Clubbing
Psych: Unremarkable
Extended Neurological Exam
Mood & Affect: Mood Unremarkable and Affect Unremarkable
Attention Span & Concentration: Awake, Alert and Interactive
Memory: Unremarkable
Tremor: Hand Tremor Absent
Involuntary Movement: None
Speech: Quality Unremarkable and Quantity Unremarkable; Negative Expressive Aphasia, Receptive Aphasia or Dysarthric
Cranial Nerve II: Left Eye: Pupillary Reactivity Unremarkable, Pupillary Size Unremarkable and Visual Gibbs Intact
Cranial Nerve II: Right Eye: Pupillary Reactivity Unremarkable and Pupillary Size Unremarkable
Cranial Nerves III, IV, : Extraocular Movement: Extraocular Movement Full in all Directions
Cranial Nerve VII: Facial Symmetry: Normal Facial Symmetry
Cranial Nerve VIII: Hearing: Unremarkable Hearing to Normal Conversational Volume
Cranial Nerves IX, X: Palate Movement: Palate Elevation Symmetric
Muscle Strength, Overall: Full Throughout and Other (5/5 shoulder abduction arm flexion hip flexion abduction adduction knee extension and ankle dorsiflexion/plantarflexion)
Pronator Drift: No Drift in Upper Extremities
Deep Tendon Reflexes: Other (Absent achilles, present 2+ in patella, brachioradialis, triceps and biceps and symmetric, no clonus, babinski and guzman negative)
Vibration Sensation: Reduced Moderately Distally
Touch Sensation: Pin Prick Reduced
Coordination: [id number] Testing Unremarkable
Babinski Sign: Absent Bilaterally
Gait & Station: Other (Stands walks without assistance, mildly wide based without ashli ataxia, normal stride length and symmetric arm swing, Rhomberg negative)
Modified Noble Score (MRS)
-
MRS Score:
Data Reviewed
-
CT Head: Report Reviewed and Image Reviewed
MRI Head: Report Reviewed and Image Reviewed
MRI Cervical Spine: Report Reviewed and Image Reviewed
MRI Thoracic Spine: Report Reviewed and Image Reviewed
MRI Lumbar Spine: Report Reviewed and Image Reviewed
Labs: Report Reviewed
EMG: Report Reviewed
--- NOTE | 2023-12-16 10:26 | W.PN.HOSP.TC ---
Today's Communication/Plan
-
await neuro recs for next steps--consult pulm
Assessment / Plan
Assessment / Plan
Patient is a 53-year-old male
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
neurology, lumbar puncture done and some results still pending--patient starting on IVIG (day 4 of 5) and pulse dose Solu-Medrol stopped --doing well in PT/OT/speech, will need outpt (script left on chart)--EMG/nerve conduction study with Acute
motor and sensory axonal length-dependent peripheral polyneuropathy-- MRI brain and C spine essentially negative--MRI of T and L/S spine not normal, await neuro input for next steps
Recurrent sinus infections status post nasal polyp surgery in the past--patient's ENT is in [place]--he sees Dr. Dewey here for pulmonary--patient states that he is to take his nebulizers in a specific order (albuterol, 3% sodium chloride,
Pulmicort)--hold antibiotics for now--consult pulm
DVT prophylaxis--Lovenox
CODE STATUS--full code
Anticipated Discharge: 24 - 48 hours
Subjective/Interval History
-
Date of Service: December 16, 2023
pt about the same, c/o that sinuses and lungs staring up
Objective Data
-
Labs:
Laboratory Results
12/16/23
05:32
WBC 8.4
Hgb 10.6 L
Hct 32.5 L
Plt Count 287
Sodium 137
Potassium 3.9
Chloride 103
Carbon Dioxide 25
BUN 29 H
Creatinine 0.6 L
Glucose 107 H
Calcium 8.8
Vital Signs:
max temp for 24 hours
12/15/23
19:36
Temp 98.5 F
Vital Signs
Temp Pulse Resp BP Pulse Ox
97.4 F 82 16 115/66 98
12/16/23 07:40 12/16/23 07:41 12/16/23 07:41 12/16/23 07:40 12/16/23 07:41
I&O
12/15/23 12/16/23 12/17/23
06:59 06:59 06:59
Intake Total 2170 / 2170 1660 / 1660
Balance 2170 / 2170 1660 / 1660
Review of Systems
-
All other systems: Reviewed and negative
Physical Exam
-
General: Well Developed, Well Nourished and No Apparent Distress
HEENT: Normocephalic and Atraumatic
Respiratory: Clear to Auscultation; Negative Wheezes or Rhonchi
Cardiac: Regular Rhythm and S1/S2; Negative Murmur
GI: Soft, Nontender, Nondistended and Normal Bowel Sounds
Musculoskeletal: No Clubbing, No Cyanosis and No Edema
Neuro: Awake and Alert
--- NOTE | 2023-12-16 10:28 | CM ---
Patient seen at bedside with physician and . Patient not cleared by neuro for discharge per physician. CM will continue to follow for discharge planning needs.
Plan; home with outpatient therapy; prescription in chart.
[2023-12-16] MEDS: TYLENOL 650 MG PO (11:27)
[2023-12-16] MEDS: BENADRYL 50 MG IV (11:27)
[2023-12-16 11:48] LABS: Lyme Disease DNA by PCR Not Detected; Lyme Source CSF
[2023-12-16] MEDS: GAMMAGARD 300 IV (11:49)
--- NOTE | 2023-12-16 14:01 | CON.PUL ---
Consultation
Consultation Request
Date/Time Consultation Requested: 12/16/2023
Date/Time Consultation Performed: 12/16/2023
Reason for Consultation: Shortness of breath, nasal congestion, asthma
Medical History
-
History of Present Illness:
History obtained from the patient, outpatient records, hospital records and at bedside. 53-year-old male with recently diagnosed asthma, severe persistent with multiple flareups over the past year requiring steroids 9 times. He was transition
from maintenance inhaler therapy to nebulized budesonide, 3% saline. Patient also has a history of nasal polyps with surgery in the past. He was being evaluated for outpatient Dupixent therapy. He brought himself to the ED 12/13/2023 because of
increased lower extremity weakness, heaviness sensation. He has been feeling this for the last 3 to 4 weeks, found it difficult to play golf. He also described calf and quadriceps weakness. He found himself walking up his steps by holding onto
the guard rail. Neurology workup revealed suspected Guillain-Umana� syndrome, confirmed by EMG. Imaging ruled out any obvious transverse myelitis. He was started on IVIG. We are asked to help from his pulmonary process as he is complaining of
increased chest congestion, nasal congestion.
Of note, he had an upper respiratory flareup in October, thought to be viral
.
PMH: Severe persistent asthma requiring multiple courses of steroids over the past year, has history of sinus polyps with sinus polyp surgery,
Past Medical History
Past Medical History: None (See above)
Past Surgical History: None (See above)
Social History
Tobacco: Non-smoker
Alcohol: Occasional (Drinking a sixpack a day, quit 10/25/2023)
Drug: None
Personal:
Living: With Family
Employment: Employed
Family History
Family History: Other (Father from cancer at age 84)
Allergies / Home Medications
Allergies
Allergy/AdvReac Type Severity Reaction Status Date / Time
No Known Allergies Allergy Verified 12/13/23 11:34
Home Medications
Medication Instructions Recorded Confirmed Last Taken Type
albuterol sulfate 2.5 mg/3 mL 2.5 mg inhalation R TID 12/13/23 12/13/23 12/13/23 History
(0.083 %) solution for nebulization Lung/Breathing Issues
albuterol sulfate 90 mcg/actuation 2 puff inhalation Q6HPRN PRN 12/13/23 12/13/23 12/12/23 History
aerosol inhaler shortness of breath
budesonide 0.5 mg/2 mL suspension 0.5 mg inhalation R BID 12/13/23 12/13/23 12/13/23 History
for nebulization Lung/Breathing Issues
montelukast 10 mg tablet 10 mg PO QPM Allergies 12/13/23 12/13/23 12/12/23 History
Review of Systems
-
All other systems: Negative unless noted
Vitals / Labs / Diagnostic Testing
Vital Signs
Temp Pulse Resp BP Pulse Ox
97.8 F 79 16 108/66 98
12/16/23 11:32 12/16/23 13:47 12/16/23 13:47 12/16/23 13:46 12/16/23 13:47
Lab Data
12/16/23 05:32
12/16/23 05:32
Microbiology
12/13/23 17:20 Csf CSF Culture - Preliminary
No Growth After 72 Hours
12/13/23 17:20 Csf Gram Stain - Preliminary
12/13/23 17:20 Csf Acid Fast Bacilli Smear - Preliminary
12/13/23 17:20 Csf Acid Fast Bacilli Culture - Preliminary
12/13/23 17:20 Csf Fungal Culture - Preliminary
Culture in progress.
Positive cultures are reported as soon as detected.
Final report to follow in four to five weeks.
Diagnostic Testing:
Physical Exam
-
HEENT: Normocephalic and Anicteric
Cardiovascular: S1/S2, Regular Rhythm, Murmur (n), Rub (n), Peripheral Edema (n) and Calf Tenderness (n)
Respiratory: Wheeze (Mild rhonchi, crackles and inspiratory squeak right base), Rales (n), Rhonchi (n) and Non-Labored Respirations
GI: Soft, Non Distended and Non Tender
Neurology: Awake, Alert and No Motor Deficits (Muscle strength 5/5)
Skin: Good Color and Other (No rash)
General: Comfortable
Assessment
-
53-year-old male with history of severe persistent asthma requiring multiple courses of steroids over the past year, FEV1 70%, elevated exhaled nitric oxide level as outpatient and eosinophils awaiting Dupixent therapy, presents with progressive
lower extremity weakness, heaviness finding himself difficult to walk up steps over the past month. Diagnosed with Guillain-Umana� syndrome, ongoing IVIG treatment. Now with increased sinus symptoms and chest congestion symptoms.
Guillain-Umana� syndrome
Worsening ascending polyneuropathy
S/p IVIG
Symptoms progressive since 11/14/2023
Recent upper respiratory infection October 2023
Subjective dyspnea, chest congestion
Increased sinus congestion
History of sinus polyps, polypectomy
Severe persistent asthma awaiting Dupixent therapy
History of alcohol use
Plan/recommendations
Patient with mild rhonchi, squeaks at the right base on exam
He is complaining of increased chest congestion, sinus congestion
He is receiving IVIG for Guillaine Umana�
Moving forward
Continue with Singulair, 3% saline, albuterol, budesonide
Patient did not tolerate Symbicort as outpatient
He will require ramp-up of nasal irrigation therapy
Nasal saline, intranasal steroid. Will also start Astelin nasal spray
Follow chest exam, mild rhonchi at the right base
Do not suspect acute pneumonia at this time but will need to be followed closely
Will check bedside FVC in a.m. for Guillaine Umana�
Outpatient spirometry 12/07/2023 revealed FVC 4.33/85%, FEV1 2.80/72%, ratio 67
Reviewed with patient, at bedside
We will follow
--- NOTE | 2023-12-16 16:41 | PTOTSP ---
Acute care PT will sign off as Pt is independent in room and ambulating hallway.
[2023-12-16] MEDS: SINGULAIR 10 MG PO (17:13)
[2023-12-16] MEDS: LOVENOX 40 MG SC (17:13)
[2023-12-16 17:54] LABS: Myeloperoxidase Antibody 167 AU/mL (0-19); Serine Protease-3, IgG 0 AU/mL (0-19)
[2023-12-16 18:52] LABS: CSF VDRL (T. pallidum) Non Reactive (Non Reactive)
[2023-12-16 20:50] LABS: Albumin Index 5.8 ratio (0.0-9.0); Albumin, CSF 16 mg/dL (0-35); Albumin, Serum 2761 mg/dL (3500-5200); CSF IgG Synthesis Rate <0.0 mg/d (<=8.0); CSF Oligoclonal Bands Negative (Negative); CSF Oligoclonal Bands Number 0 Bands (0-1); IgG 1155 mg/dL (768-1632); IgG, CSF 3.2 mg/dL (0.0-6.0)
[2023-12-16] MEDS: MELATONIN 5 MG PO (21:04)
[2023-12-17] VITALS (7 sets, daily range): BP systolic 118–131; BP diastolic 77–90
[2023-12-17 02:16] LABS: Purkinje Cell/Neuronal Nuc IgG None Detected (None Detected)
[2023-12-17 02:16] LABS: Paraneoplastic Ab IgG, CSF None Detected (None Detected)
[2023-12-17 07:03] LABS: Hematocrit 38.5 % (39.0-52.0); Hemoglobin 12.5 g/dL (13.0-18.0); Mean Corp Hgb Conc. 32.5 g/dL (33.0-37.0); Mean Corpuscular Hgb 29.1 pg (27.0-31.0); Mean Corpuscular Volume 89.5 fL (80.0-94.0); Mean Platelet Volume 9.6 fL (7.4-10.4); Platelet Count 325 10^3/uL (130-400); Red Cell Dist. Width 13.8 % (11.5-14.5); White Blood Cell Count 10.9 10^3/uL (4.8-10.8)
[2023-12-17 07:30] LABS: Blood Urea Nitrogen 22 mg/dl (9-20); Calcium 8.7 mg/dl (8.4-10.2); Carbon Dioxide 26 mmol/L (22-30); Chloride 100 mmol/L (98-107); Estimated Creatinine Clearance > 125 ml/min; Glucose 84 mg/dl (70-99); Magnesium 2.4 mg/dl (1.6-2.3); Sodium 136 mmol/L (135-145); eGFR > 60.00
[2023-12-17] MEDS: VENTOLIN NEBULES INH ×3 (07:57→14:12)
[2023-12-17] MEDS: SODIUM CHLORIDE 3% FOR INHALATION INH ×3 (07:57→14:12)
[2023-12-17] MEDS: PULMICORT INH ×2 (07:57→09:08)
--- NOTE | 2023-12-17 08:23 | W.PN.NEURO.1 ---
Today's Communication / Plan
-
-SPEP drawn
-Finish day 5/5 IVIG today
-Mobilization PT assessment noted
-Outpatient hematology evaluation for the bone marrow abnormalities seen on MRI spine, may pursue observation, additional blood work, and reimaging of spine MRI in 3-4 months versus consideration of biopsy
-Neurology follow up 4 weeks
-PCP follow up
-No barriers to discharge from my standpoint
Neuro Assessment/Plan
Assessment
MRI brain does not show any abnormalities within the brain or brainstem
MRI of the cervical spine shows no intrinsic cervical cord lesion does show degenerative changes without any significant spinal stenosis, incidental note of a homogeneous marrow signal intensity which I do not believe this is all related to his
presentation
EMG demonstrates an acute motor and sensory polyneuropathy
Lumbar puncture showed normal protein of 47 no significant white blood cells and no evidence of infection
MARILYN negative, SSA and SSB negative, acetylcholine Ab negative
ANCA pending, cryoglobulins pending
B12 and TSH normal
CSF cytology no evidence for neoplastic or infectious process
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
recall that a substantial proportion of cases of Guillain-Umana� will have a normal protein on CSF and can also have normal reflexes uncommonly. Patient also had transient viral illness with upper respiratory and GI symptoms at end/middle of
October. Time course of fairly acute onset of symptoms, then hitting a peak severity and now slowly improving would also fit with Guillan [place].
MRI T and L spine show no transverse myelitis. There is significant stenosis of the central spinal canal and foraminal stenoses in the thoracic and lumbar areas, but patient's lack of back pain, no trauma history, acute onset of symptoms, along
with absence of myelopathic feautres on neurologic exam and EMG supportive of an acute neuropathy all argue strongly against any of the observed imaging pathology on MRI spine playing any role in his active symptoms.
MRI does not abnormal bone marrow signal indicating either benign etiology versus bone such as malignant bone marrow proliferation disorder, on admission no anemia, thrombocytopenia, normal calcium and serum protein
No systemic symptoms recently, did have a lot of sinusitis problems last year
Subjective/Objective
Subjective Data
Date of Service: December 17, 2023
No acute events, feeling well
Objective Data
Vital Signs
Temp Pulse Resp BP Pulse Ox
98.4 F 76 16 118/78 97
12/17/23 07:00 12/17/23 07:59 12/17/23 07:59 12/17/23 07:00 12/17/23 07:59
Lab Results
12/17/23 05:37
12/17/23 05:37
Sodium 136 mmol/L (135-145) 12/17/23 05:37
Potassium 4.0 mmol/L (3.5-5.1) 12/17/23 05:37
BUN 22 mg/dl (9-20) H 12/17/23 05:37
Glucose 84 mg/dl (70-99) 12/17/23 05:37
Calcium 8.7 mg/dl (8.4-10.2) 12/17/23 05:37
Vitamin B12 550 pg/ml (239-931) 12/14/23 05:13
Patient Allergies
No Known Allergies Allergy (Verified 12/13/23 11:34)
Review of Systems
-
History Source: Patient
All other systems: Reviewed and negative
Constitutional: No Symptoms
EENT: No Symptoms Reported
Respiratory: No Symptoms
Cardiac: No Symptoms
Abdomen/GI: No Symptoms
Genitourinary: No Symptoms
Musculoskeletal: No Symptoms
Skin: No Symptoms
Neuro: Weakness, Numbness and See existing Neuro Note
Endocrine: No Symptoms
Hematologic / Lymphatic: No Symptoms
Allergy / Immunology: No Symptoms
Physical Exam
-
General: Well Developed, Well Nourished, No Apparent Distress, Comfortable and Appears Stated Age
Eyes: No Ptosis
HEENT: Normocephalic
Neck: No Bruits Bilaterally
Respiratory: Clear to Auscultation
Cardiac: Regular Rhythm
GI: Normal Bowel Sounds
Skin: Unremarkable
Extremities: No Clubbing
Psych: Unremarkable
Extended Neurological Exam
Mood & Affect: Mood Unremarkable and Affect Unremarkable
Attention Span & Concentration: Awake, Alert and Interactive
Memory: Unremarkable
Tremor: Hand Tremor Absent
Involuntary Movement: None
Speech: Quality Unremarkable and Quantity Unremarkable; Negative Expressive Aphasia, Receptive Aphasia or Dysarthric
Cranial Nerve II: Left Eye: Pupillary Reactivity Unremarkable and Pupillary Size Unremarkable
Cranial Nerve II: Right Eye: Pupillary Reactivity Unremarkable and Pupillary Size Unremarkable
Cranial Nerves III, IV, : Extraocular Movement: Extraocular Movement Full in all Directions
Cranial Nerve VII: Facial Symmetry: Normal Facial Symmetry
Muscle Strength, Overall: Full Throughout
Muscle Bulk & Tone: Bulk Unremarkable
Pronator Drift: No Drift in Upper Extremities
Deep Tendon Reflexes: Other (Absent in the achilles, present 2+ in biceps triceps patella)
Vibration Sensation: Reduced Mildly Distally
Touch Sensation: Pin Prick Reduced
Coordination: [id number] Testing Unremarkable
Babinski Sign: Absent Bilaterally
Gait & Station: Negative Romberg Test Positive
Modified Perico Score (MRS)
-
MRS Score:
Data Reviewed
-
MRI Head: Report Reviewed and Image Reviewed
MRI Cervical Spine: Report Reviewed and Image Reviewed
MRI Thoracic Spine: Report Reviewed and Image Reviewed
MRI Lumbar Spine: Report Reviewed and Image Reviewed
Labs: Report Reviewed
EMG: Report Reviewed
[2023-12-17] MEDS: VENTOLIN NEBULES 2.5 MG INH (09:44)
[2023-12-17] MEDS: BENADRYL 50 MG IV (10:27)
[2023-12-17] MEDS: TYLENOL 650 MG PO (10:27)
[2023-12-17] MEDS: GAMMAGARD 300 IV (10:48)
--- NOTE | 2023-12-17 13:01 | W.PN.HOSP.TC ---
Today's Communication/Plan
-
DC
Assessment / Plan
Assessment / Plan
Patient is a 53-year-old male
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
His symptoms are rather subacute to acute with poor motor weakness and sensory disturbances. EMG shows acute axonal motor and sensory neuropathy. Postoperative improvement with IVIG and steroids also suggestive of inflammatory process. He is
feeling pretty much back to normal. Though LP is nondiagnostic still suspected GB syndrome. Appreciate neurology input with whom I had a discussion today-cleared for discharge.
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 Patient has no chronic back pain. I do not see left shift in the blood test to suggest
myelofibrosis or myeloproliferative. Is been healthy other than acute issue was about. Do not know if this is a benign condition. Patient advised to follow-up with hematology as outpatient. Touch based with Dr Warren who will get a early new
patient appointment
Lumbar spinal canal stenosis at multiple levels
Lumbar disc disease
Thoracic disc disease with mild to moderate spinal compression
-Interestingly patient has no back symptoms including pain or sciatica.
- Is active playing golf
- He had remote history of back pain issues but those resolved.
-EMG showed more acute axonal polyneuropathy than myelopathy
Patient advised to see spinal surgeon as an outpatient for routine evaluation
Recurrent sinus infections status post nasal polyp surgery in the past--patient's ENT is in [place]--he sees Dr. Dewey here for pulmonary--patient states that he is to take his nebulizers in a specific order (albuterol, 3% sodium chloride,
Pulmicort)--appt pulm input
DVT prophylaxis--Lovenox
CODE STATUS--full code
[facility] Neuro - ok for dc from their [facility]
Discussed with patient about GB diagnosis and follow-up as well as findings of the vertebral bodies and the stenosis and disc disease and the follow-up plan.
Total time of discharge 32 minutes
Anticipated Discharge: Today
Subjective/Interval History
-
Date of Service: December 17, 2023
Patient feels much improved.
Remembers everything started on Nov.
He was in his usual state of health when he started to notice issues with lower extremity strength. Strength was getting weaker progressively and he was advised to see a neurologist. He then started have tingling numbness in his both feet. The
last few days has been acutely worse. He also had left upper extremity/hand numbness weakness.
He has noticed decreased ambulation because of her strength issues.
Ever since in hospital after receiving treatment his strength is much improved and close to normal. He is able to do stairs, is able to walk without needing to stop.
In the past he had back issues many years ago but nothing since. No chronic back pains. Able to play golf without any issues before November 15. No chronic lower leg pains and this is all acute symptoms since November 15.
He has been healthy other than chronic sinus symptoms.
Is active and actively employed.
Objective Data
-
Labs:
Laboratory Results
12/17/23
05:37
WBC 10.9 H
Hgb 12.5 L
Hct 38.5 L
Plt Count 325
Sodium 136
Potassium 4.0
Chloride 100
Carbon Dioxide 26
BUN 22 H
Creatinine 0.6 L
Glucose 84
Calcium 8.7
Vital Signs:
Vital Signs
Temp Pulse Resp BP Pulse Ox
97.8 F 82 20 130/82 98
12/17/23 11:00 12/17/23 12:25 12/17/23 11:00 12/17/23 12:25 12/17/23 11:00
I&O
12/16/23 12/17/23 12/18/23
06:59 06:59 06:59
Intake Total 1660 / 1660 2039
Balance 1659
Review of Systems
-
Constitutional: Denies Fever, Weight Loss, No Appetite, Fatigue or Chills
EENT: Denies Sore Throat
Respiratory: Denies Cough or Trouble Breathing
Cardiac: Denies Chest Pain
Abdomen/GI: Denies Abdominal Pain, Nausea or Vomiting
Neuro: Denies Dizzy
Physical Exam
-
General: No Apparent Distress
HEENT: Moist Mucous Membranes
Respiratory: Clear to Auscultation
Cardiac: Regular Rhythm and S1/S2
GI: Soft
Neuro: AO x 3; Negative No Motor Deficits, Tremors, Slurred Speech or Facial Droop
Psych: Calm; Negative Confused
Data Reviewed
-
Labs: Labs Reviewed by me
--- NOTE | 2023-12-17 13:23 | W.DS.TRANS ---
DC Summary - Customer Support Professional
-
Discharge Instructions:
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
sinus infections status post nasal polyp surgery
, abnormal MRIs of thoracic/lumbar spine
Diet As tolerated,Regular
Activity As tolerated
Driving Restrictions Not until seen by your Dr
Bathing Restrictions None
Other Services PT,OT
Instructions:
Stand-Alone Forms:
Changes to Home Medications: No
Discharge Medications:
DC Medications w/original date entered in [employer]
albuterol sulfate 2.5 mg/3 mL (0.083 %) solution for nebulization 2.5 mg inhalation R TID Lung/Breathing Issues 12/13/23
albuterol sulfate 90 mcg/actuation aerosol inhaler 2 puff inhalation Q6HPRN PRN shortness of breath 12/13/23
budesonide 0.5 mg/2 mL suspension for nebulization 0.5 mg inhalation R BID Lung/Breathing Issues 12/13/23
montelukast 10 mg tablet 10 mg PO QPM Allergies 12/13/23
Home Medication Changes
Pending Results: No
--- NOTE | 2023-12-17 13:44 | CM ---
Chart reviewed
Pt for d/c
For out pt PT - Pt aware
Rx on chart
Reports has ride home
Plan - d/c to home no needs
--- NOTE | 2023-12-17 15:55 | W.DCSUMMARY ---
Discharge Summary
Discharge Data
Date of Admission: 12/13/23
Date of Discharge: 12/17/23
-
Pending Results: No
Hospital Course
Primary diagnosis:
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
Moderately diffuse decreased bone marrow signal intensity in thoracic and lumbar spine suggesting diffuse bone marrow replacement disease
Lumbar spinal stenosis with disc disease
Thoracic disc disease with mild to moderate spinal cord compression-asymptomatic
Hospital course:
53-year-old gentleman without much past medical history presented with progressive lower extremity weakness with bilateral foot neurosensory symptoms ongoing since November 15. He also had left hand/arm sensory symptoms.
He had issues with recurrent sinus symptoms but no prior neurological issues.
The clinical syndrome was was concerning for ascending neuropathy. Her EMG which showed acute axonal motor and sensory polyneuropathy. Had an MRI of the brain which did not show evidence of acute stroke. Neurology was concerned about Coy Umana
syndrome and was started on IVIG and steroids and patient with significant improvement in his weakness and also the sensory symptoms of the feet. He had resolved symptoms in the left arm. He was able to ambulate good as well as do stairs which he
was not able to do before coming into the hospital. Lumbar puncture was nondiagnostic though.
He had an MRI of the cervical, thoracic, lumbar spine and it showed diffusely decreased bone marrow signal intensity in the lumbar and thoracic spine concerning for diffuse bone marrow replacement disease. He has no systemic symptoms. His CBC
shows no left shift or any immature cells. Unclear if this is a benign or malignant issue. We did speak with on-call oncologist who is going to arrange for follow-up.
Also noted was lumbar spinal stenosis with disc disease and also disc disease and thoracic spine with mild to moderate compression in the thoracic spine level but patient is asymptomatic without any chronic back pains, sciatica. EMG also showed
axonal polyneuropathy not myelopathy. He had remote history of back pain issues which resolved and he current active lifestyle including playing golf without any issues. Advised him to see spinal surgeon as an outpatient routinely.
Was seen by his pulmonary for sinus issues who advised to continue current symptomatic treatment. He also has seen ENT in the past and had nasal polyp surgery.
Consultants on board:
Neurology Dr. Zhang
Pulmonary Dr. Costello
EMG physician Dr Santacruz
Discharge Plan
-
Patient Disposition: Home (Routine Discharge)
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
Condition: Good
Diet: As tolerated and Regular
Activity: As tolerated
Driving Restrictions: Not until seen by your Dr
Bathing Restrictions: None
Other Services: PT and OT
Referrals:
Ced Warren DO [Active] - in one to two weeks
Randy Aguero DO [Family Provider] - in less than 1 week
Joana Santos MD [Active] - in two weeks (About abnormal MRI spine with stenosis and bulging discs)
Prescriptions:
Continued
albuterol sulfate 2.5 mg /3 mL (0.083 %) solution for nebulization
2.5 mg inhalation R TID
budesonide 0.5 mg/2 mL suspension for nebulization
0.5 mg inhalation R BID
montelukast 10 mg tablet
10 mg PO QPM
albuterol sulfate 90 mcg/actuation HFA aerosol inhaler
2 puff INHALATION Q6HPRN PRN (Reason: shortness of breath)
Discharge Orders:
Discharge Patient (As Directed); Ordered 12/17/23
Ordered By: Franky Gastelum
Discharge Date and Time
Discharge Date/Time: 12/17/23 14:42
[2023-12-18 20:55] LABS: Albumin 2.98 g/dL (3.75-5.01); Alpha 1 Globulin 0.48 g/dL (0.19-0.46); Alpha 2 Globulin 0.93 g/dL (0.48-1.05); SPEP IFE Reflex Not Done
[2023-12-19 22:51] LABS: Cryoglobulin NEG 72Hour (NEG 72Hour)
== END 2023-12-17 14:42 | disposition home or self-care (01) | DRG 96 ==
LOC: 3 WEST ACU 19:36
PROVIDERS: Emergency Medicine; ADMITTING PHYSICIAN Internal Medicine; ATTENDING PHYSICIAN Internal Medicine; CONSULT PHYSICIAN Internal Medicine Critical Care Medicine; CONSULT PHYSICIAN Psychiatry & Neurology Neurology; EMERGENCY PHYSICIAN Emergency Medicine; FAMILY PHYSICIAN Family Medicine
PROC: 30243S1 Transfusion of Nonautologous Globulin into Central Vein, Percutaneous Approach (ICD-10-PCS; 2023-12-13)
DX: G61.0 Guillain-Barre syndrome (principal); R20.0 Anesthesia of skin; G60.8 Other hereditary and idiopathic neuropathies; J45.50 Severe persistent asthma, uncomplicated; D72.829 Elevated white blood cell count, unspecified; J33.9 Nasal polyp, unspecified; J32.9 Chronic sinusitis, unspecified; M48.061 Spinal stenosis, lumbar region without neurogenic claudication
CPT/HCPCS: 62270; 70450; 70553; 72156; 72157; 72158; 80048; 80053; 82040; 82042; 82550; 82595; 82607; 82728; 82746; 82784; 82945; 83516; 83735; 83916; 84155; 84157; 84165; 84443; 85025; 85027; 86038; 86041; 86140; 86235; 86255; 86592; 87015; 87070; 87102; 87116; 87205; 87476; 88108; 89051; 92526; 92610; 94060; 94640; 96361; 96365; 96366; 97116; 97162; 97167; 97530; 99285; A9575; J1569

== ENCOUNTER → 2023-12-29 11:43 | Outpatient (REF) | payer OTHER, SELFPAY | LOC: HWRAD 11:43 | PROVIDERS: ATTENDING PHYSICIAN Internal Medicine Critical Care Medicine; FAMILY PHYSICIAN Family Medicine | DX: R06.09 Other forms of dyspnea (principal) | CPT/HCPCS: 71046 ==

== ENCOUNTER 2024-01-07 19:09 | Inpatient (IN) | payer OTHER, SELFPAY ==
[2024-01-07] VITALS (17 sets, daily range): BP systolic 112–151; BP diastolic 68–123; BMI 26.8
[2024-01-07 17:06] LABS: % Basophils 0.3 % (0-2); % Eosinophils 66.6 % (0-6); % Immature Granulocytes 0.4 % (0-0.5); % Lymphocytes 3.2 % (20.5-51.1); % Monocytes 1.9 % (1.7-9.3); % Neutrophils 27.6 % (42.2-75.2); Absolute Basophils 0.1 10^3/uL (0-0.2); Absolute Eosinophils 25.3 10^3/uL (0-0.7); Absolute Immature Granulocytes 0.1 10^3/uL (0-0.05); Absolute Lymphocytes 1.2 10^3/uL (1.2-3.4); Absolute Monocytes 0.7 10^3/uL (0.1-0.6); Absolute Neutrophils 10.4 10^3/uL (1.4-6.5); Hematocrit 38.1 % (39.0-52.0); Hemoglobin 12.7 g/dL (13.0-18.0); Mean Corp Hgb Conc. 33.3 g/dL (33.0-37.0); Mean Corpuscular Hgb 28.9 pg (27.0-31.0); Mean Corpuscular Volume 86.6 fL (80.0-94.0); Mean Platelet Volume 9.4 fL (7.4-10.4); Nucleated Red Blood Cells % 0 % (-); Platelet Count 435 10^3/uL (130-400); Red Cell Dist. Width 14.9 % (11.5-14.5); White Blood Cell Count 37.9 10^3/uL (4.8-10.8)
--- NOTE | 2024-01-07 17:14 | ED.GENMED ---
History of Present Illness
General
Chief Complaint: Musculo-Skeletal Complaint
Source: patient
Exam Limitations: none
Time Seen by Provider: 01/07/24 16:43
Travel History
Have you had any contact with someone who has COVID-19?: No
Do you have any symptoms of coronavirus? Fever > 100 degrees, chills, cough, shortness of breath, sore throat, loss of taste or smell, muscle aches, or headache?: No
History of Present Illness
History of Present Illness:
53-year-old male presents for evaluation and increased weakness in the legs and pain throughout the body. Recently diagnosed with Guillain-Umana�. He was here in the hospital beginning of the month. Symptoms worsened recently presented here for
evaluation. No fever. No chest pain. No shortness of breath. No other complaints at this time
Past History
Social History
Tobacco: Non-smoker
Living: with family
Employment: Employed
Phy Exam
Physical Exam
Physical Exam:
General: Well-appearing male no acute respiratory distress
HEENT: Normocephalic atraumatic
Heart: Regular rate and rhythm no murmurs
Lungs: Clear no wheeze or rales
Abdomen soft nontender nondistended no guarding rebound normal bowel sounds
Extremities: No cyanosis
Neurologic exam: Weak dorsiflexion noted to the feet. Alert and oriented no facial asymmetry
Skin is warm no rash
Course
Orders/Labs/Results
Orders:
Orders
01/07/24 16:44
Complete Blood Count/With Diff Urgent
Comprehensive Metabolic Panel Urgent
Lipase Urgent
Abnormal Lab Results
01/07/24
16:44
WBC 37.9 H 10^3/uL
(4.8-10.8)
RBC 4.40 L 10^6/uL
(4.70-6.10)
Hgb 12.7 L g/dL
(13.0-18.0)
Hct 38.1 L %
(39.0-52.0)
RDW 14.9 H %
(11.5-14.5)
Plt Count 435 H 10^3/uL
(130-400)
Abs Immat Gran (auto) 0.1 H 10^3/uL
(0-0.05)
Absolute Neuts (auto) 10.4 H 10^3/uL
(1.4-6.5)
Absolute Monos (auto) 0.7 H 10^3/uL
(0.1-0.6)
Absolute Eos (auto) 25.3 H 10^3/uL
(0-0.7)
Neutrophils % 27.6 L %
(42.2-75.2)
Lymphocytes % 3.2 L %
(20.5-51.1)
Eosinophils % 66.6 H %
(0-6)
Sodium 130 L mmol/L
(135-145)
BUN 22 H mg/dl
(9-20)
Creatinine 0.5 L mg/dL
(0.7-1.3)
Glucose 106 H mg/dl
(70-99)
ALT 65 H U/L
(0-50)
Albumin 3.1 L g/dl
(3.5-5.0)
01/07/24 16:44
01/07/24 16:44
Vital Signs
Initial and Last Documented VS:
Initial Vital Signs
Temp Pulse Resp BP Pulse Ox
99.0 F 117 16 129/80 96
01/07/24 15:11 01/07/24 15:11 01/07/24 15:11 01/07/24 15:11 01/07/24 15:11
Last Documented Vital Signs
Temp Pulse Resp BP Pulse Ox
99.0 F 105 21 140/90 95
01/07/24 15:11 01/07/24 17:45 01/07/24 17:45 01/07/24 17:30 01/07/24 17:45
MDM/Problems Addressed
Differential Diagnosis Includes:
Increased weakness and pain. Recent diagnosis of Guillain-Umana�. Neurology already saw patient. Recommended admission for potential IVIG and further evaluation. Will check labs here and admit to hospitalist question possible worsening
Guillain-Umana�
*Critical Care Note
Total Time (30-74mins, 75-104mins- exclusive of procedures): Not Applicable
ED Attending Note
-
Portions of this chart may have been created with voice recognition software.� Occasional wrong word or��sound alike� substitutions may have occurred due to the inherent limitations of voice recognition software.
Discharge Plan
Departure
Patient Disposition: Admit
Date of Disposition: 01/07/24
Time of Disposition: 17:53
Admit to: Telemetry
Presentation/result/management discussed w/ accepting MD/DO: Hospitalist
Discharge Problem:
Weakness
Prescriptions:
No Action
albuterol sulfate 2.5 mg /3 mL (0.083 %) solution for nebulization
2.5 mg inhalation R TID
budesonide 0.5 mg/2 mL suspension for nebulization
0.5 mg inhalation R BID
montelukast 10 mg tablet
10 mg PO QPM
albuterol sulfate 90 mcg/actuation HFA aerosol inhaler
2 puff INHALATION Q6HPRN PRN (Reason: shortness of breath)
Referrals:
Randy Aguero DO [Family Provider] -
Interventions
Interventions:
*Risk Screen - Suicide Last Done: 01/07/24 16:32
*General Assessment Last Done: 01/07/24 16:32
*Neglect/Abuse Screening Last Done: 01/07/24 15:11
ED- Fall Risk Assessment Last Done: 01/07/24 16:32
*ED COVID-19 Vaccine History Last Done: 01/07/24 15:11
ED-Musculoskeletal Assessment Last Done: 01/07/24 16:32
[2024-01-07 17:19] LABS: ALT (SGPT) 65 U/L (0-50); AST (SGOT) 59 U/L (17-59); Albumin 3.1 g/dl (3.5-5.0); Alkaline Phosphatase 109 U/L (38-126); Blood Urea Nitrogen 22 mg/dl (9-20); Calcium 8.7 mg/dl (8.4-10.2); Carbon Dioxide 27 mmol/L (22-30); Chloride 99 mmol/L (98-107); Glucose 106 mg/dl (70-99); Lipase 47 U/L (23-300); Sodium 130 mmol/L (135-145); Total Protein 6.5 g/dl (6.3-8.2); eGFR > 60.00
[2024-01-07 17:23] LABS: Potassium 4.5 mmol/L (3.5-5.1)
--- NOTE | 2024-01-07 17:40 | CON.NEURO4 ---
Consultation - Neurology 4
-
CONSULTING PHYSICIAN: Adis
REFERRING PHYSICIAN: ER
DICTATED BY: Adis
DATE/TIME OF REQUEST: 01/07/24 evening
DATE/TIME OF CONSULTATION: 01/07/24 at 1700
Reason for Consultation: worsening weakness
History of Present Illness:
48yo male with recent diagnosis of presumed Guillain-Umana� syndrome admitted at [facility] December 13 through December 17, 2023. He had an atypical course with normal protein on CSF and preserved reflexes beyond diminished ankle jerks. However, his
weakness, sensory change and acute neuropathy findings on EMG were supportive of the diagnosis of GBS. He was treated with IVIG and steroids with significant improvement in weakness and the sensory symptoms in his feet. He was able to ambulate
unassisted upon discharge.
Since being discharged from the hospital, his course was complicated due a COVID infection and worsening asthma with some associated side effects from medications as well as diarrhea (feels this is secondary to abx) and insomnia. He last saw "Valeriano"Leatha in our clinic on January 03, the same day that he reported abrupt worsening of right foot drop. His called the answering service today stating that he is been having severe neuropathic pain consisting of sharp stabbing pain
predominantly in his elbows bilaterally, right arm and in his ankles. Around 1 AM this morning he started having difficulty with dexterity in both hands that resolved around 7 AM. The severe pain continued. They came to the ER after he had
difficulty ambulating and had 'almost complete lack of strength in his legs' resulting in difficulty getting up to use the bathroom. He denies any diplopia, blurred vision, facial weakness, dysphagia, or dysarthria. No clear associated shortness
of breath. Dr. Zhang had started him on oxycodone earlier this week which he is used at times. As of the last 24 hours this was not providing him much relief. His PCP had also sent him in tramadol. About 1 week ago he reports that his
office helper clerical started him on some antibiotics and steroids as well as Dupixent. He saw hematology/oncology, Dr. Barnard, on Tuesday and is planned for bone marrow biopsy as well as further testing.
From Dr. Zhang's last inpatient note, 12/17/23:
'MRI brain does not show any abnormalities within the brain or brainstem
MRI of the cervical spine shows no intrinsic cervical cord lesion does show degenerative changes without any significant spinal stenosis, incidental note of a homogeneous marrow signal intensity
EMG demonstrates an acute motor and sensory polyneuropathy
Lumbar puncture showed normal protein of 47 no significant white blood cells and no evidence of infection
MARILYN negative, SSA and SSB negative, acetylcholine Ab negative
B12 and TSH normal
CSF cytology no evidence for neoplastic or infectious process
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
recall that a substantial proportion of cases of Guillain-Umana� will have a normal protein on CSF and can also have normal reflexes uncommonly.� Patient also had transient viral illness with upper respiratory and GI symptoms at end/middle of
October.� Time course of� fairly acute onset of symptoms, then hitting a peak severity and now slowly improving would also fit with Guillan [place].
MRI T and L spine show no transverse myelitis.� There is significant stenosis of the central spinal canal and foraminal stenoses in the thoracic and lumbar areas, but patient's lack of back pain, no trauma history, acute onset of symptoms, along
with absence of myelopathic feautres on neurologic exam and EMG supportive of an acute neuropathy all argue strongly against any of the observed imaging pathology on MRI spine playing any role in his active symptoms.'
Past Medical History: recent admission with GBS, prior history of sciatica which resolved asthma, sinus issues
Surgical History: Nasal polyp surgery
Family History: father with cancer
Social History:
Allergies
No Known Allergies Allergy (Verified 01/07/24 17:40)
Home Medications
Medication Instructions Recorded
albuterol sulfate 2.5 mg/3 mL 2.5 mg inhalation R TID 12/13/23
(0.083 %) solution for nebulization Lung/Breathing Issues
albuterol sulfate 90 mcg/actuation 2 puff inhalation Q6HPRN PRN 12/13/23
aerosol inhaler shortness of breath
budesonide 0.5 mg/2 mL suspension 0.5 mg inhalation R BID 12/13/23
for nebulization Lung/Breathing Issues
montelukast 10 mg tablet 10 mg PO QPM Allergies 12/13/23
Review of Symptoms:
Patient denies any fever, headache, chest pain, shortness of breath, GI or symptoms.
�Per the HPI.�All systems are reviewed negative except above.
Vital Signs
Temp Pulse Resp BP Pulse Ox
99.0 F 102 22 124/76 96
01/07/24 15:11 01/07/24 16:45 01/07/24 16:45 01/07/24 16:30 01/07/24 16:45
Lab Results
01/07/24 16:44
01/07/24 16:44
Sodium 130 mmol/L (135-145) L 01/07/24 16:44
Potassium 4.5 mmol/L (3.5-5.1) 01/07/24 16:44
BUN 22 mg/dl (9-20) H 01/07/24 16:44
Glucose 106 mg/dl (70-99) H 01/07/24 16:44
Calcium 8.7 mg/dl (8.4-10.2) 01/07/24 16:44
Physical Exam:
The patient is afebrile, heart sounds S1 and S2 are regular and chest is clear to auscultation bilaterally.
Neurologic Examination:
The patient is awake, alert and oriented x 3. He is able to follow commands and answer questions appropriately. There is no aphasia or dysarthria. On cranial nerve assessment, pupils are 3 mm bilateral, round and reactive to light and
accommodation. Visual mas are full. Extraocular movements are intact. Facial sensations are intact and bilaterally symmetrical, there is no facial asymmetry. Hearing is intact bilaterally to normal conversation volume. Tongue palate and uvula
are midline. Sternocleidomastoid strengths are full bilaterally. Motor strengths are 4+ proximally in BUE, biceps/triceps 4+, hand crab catcher 2-3 bilaterally, worse on right; BLE 4+ except R ankle dorsiflexion 2/5, plantar 4/5, L ankle dorsiflexion 3/5,
plantarflexion 4/5. There is no drift or involuntary movement noted. Deep tendon reflexes are trace throughout except at ankles where they were absent; length dependent sensory loss to distal midshins bilaterally and distal forearms bilaterally.
Coordination is intact by finger to nose bilaterally.
Neuro Imaging: none
Impression:
VANESSA MAGUIRE is a 53 year old M who has presented to the hospital with worsening neuropathic pain, distal>proximal upper and lower extremity weakness and ambulatory dysfunction with recent diagnosis of GBS; current presentation is concerning for a
relapse/progression into CIDP. Unclear if this was provoked in part by COVID infection or has a paraneoplastic component.
Recommendations:
1. start IVIG--will discuss dosing with pharmacy
2. start IVSM 1g once daily x 3-5 days depending upon course
3. start gabapentin 300mg qhs
4. fall precautions, neurochecks
5. h/onc evaluation
6. vital capacity/NIF TID
Will continue to follow.
Discussed patient care with: patient, patient's , Dr. Villafana, Trev Wright, Dr. Romero
--- NOTE | 2024-01-07 17:59 | HPS.HSE ---
Addendum entered and electronically signed by Norah Romero MD 01/07/24 19:01:
I saw and examined the patient.
The STOCK WORKER's note was reviewed and I agree with the note.
Comment:
53-year-old male with recently diagnosed Guillain-Umana� syndrome earlier this month, myeloproliferative disease with recently initiated work up, allergic rhinitis, asthma and COVID about 2 weeks ago; p/w increased bilateral lower extremities
weakness and bilateral elbow pain and weakness. Patient could not sleep due to the pain.�Patient was taking Oxy and Advil with minimal relief. He felt unsteady on his feet and could not walk.
Patient was evaluated by neurology in the ED with plan to initiate IVIG, and heme CS
A/P:
# Increased BL LE weakness, new onset BL UE weakness and numbness, likely due to GBS flare
# GBS flare possible exacerbated by recent COVID infection ~2 weeks NOZZLEMAN
IVIG and steroid per neuro
monitor NIF/VC
start gabapentin for neuropathy and cont NOZZLEMAN oxycodone for pain control
Neuro CS
PT/OT
# leukocytosis unclear cause, ?reactive
Can check UA and blood culture
Monitor for now
# Hyponatremia may be due to hypovolemic from diarrhea
monitor clinically for diarrhea
can start gentle IVF and follow up sodium level
consider stool studies if diarrhea recurs
# Concern for lumbar and thoracic marrow infiltrative disease
hematology consulted
# hxt of allergic rhinitis/asthma
nebs from home continued
DVT prophylaxis--Lovenox SQ
CODE STATUS--full code
DW at bedside
DW Neuro
Original Note:
Family Physician
-
Family Physician: Randy Aguero
Chief Complaint
-
LE weakness
History of Present Illness
53-year-old male with past medical history for Guillain-Umana� syndrome, allergic rhinitis, asthma presented to us with increased bilateral lower extremities and bilateral elbow pain . Patient cannot bend his right fingers . Stated worsening pain
for last 3 nights . Patient could not sleep due to the pain . Patient was taking Oxy and Advil with very minimal relief in his symptoms . Patient is unsteady on his feet . Patient was not able to walk even to the bathroom today .� Recently
diagnosed with Guillain-Umana�. Chronic numbness and tingling of bilateral hands and bilateral foot. Patient stated 3-4 episodes of loose stools for past few days. Today he denied any bowel movement. denied abdominal pain, n,v/ denied fever,
chills, chest pain, sob. denied PRETTY, dizzy or syncopal episode. denied dysuria or hematuria.
patient was evaluated by neurology, initiated on IVIG. admitting for further mangment.
Medical History
Past Medical History
Past Medical History: Reports Other
Additional Past Medical History:
Guillain-Umana� syndrome
Allergic rhinitis
Nasal polyps
Asthma
Past Surgical History: Reports Other
Additional Past Surgical History:
Nasal polyps removed
Social History
Tobacco: Non-smoker
Alcohol: Occasional
Drug: None
Personal:
Living: With Family
Employment: Not Employed
Family History
Family History: Not pertinent
Allergies / Home Medications
Allergies reflects when Allergies were last updated in [employer].
Home Medications with original date entered in [employer]
Allergy/Medication List:
Allergies
Allergy/AdvReac Type Severity Reaction Status Date / Time
No Known Allergies Allergy Verified 01/07/24 17:40
Home Medications
albuterol sulfate 2.5 mg/3 mL (0.083 %) solution for nebulization 2.5 mg inhalation R TID Lung/Breathing Issues 12/13/23
albuterol sulfate 90 mcg/actuation aerosol inhaler 2 puff inhalation Q6HPRN PRN shortness of breath 12/13/23
budesonide 0.5 mg/2 mL suspension for nebulization 0.5 mg inhalation R BID Lung/Breathing Issues 12/13/23
montelukast 10 mg tablet 10 mg PO QPM Allergies 12/13/23
Review of Systems
-
Constitutional: Reports Fatigue
EENT: Reports No Symptoms
Respiratory: Reports No Symptoms
Cardiac: Reports No Symptoms
Abdomen/GI: Reports Diarrhea (Loose stools)
: Reports No Symptoms
Musculoskeletal: Reports Other (Bilateral elbow pain)
Skin: Reports No Symptoms
Neurological: Reports Weakness and Numbness
Endocrine: Reports No Symptoms
Hematologic/Lymphatic: Reports No Symptoms
Psych: Reports No Symptoms
Physical Exam
Vital Signs
Vital Signs
Temp Pulse Resp BP Pulse Ox
99.0 F 105 21 140/90 95
01/07/24 15:11 01/07/24 17:45 01/07/24 17:45 01/07/24 17:30 01/07/24 17:45
Physical Exam
General: Well Developed, Well Nourished and No Apparent Distress
HEENT: NormoCephalic, Moist mucous membranes and Atraumatic
Respiratory: Clear
Cardiac: S1/S2 and Regular Rhythm; No Murmur or Rub
GI: Soft, Non Tender, Non Distended and Normal Bowel Sounds; No Organomegaly
Rectal: Deferred by Provider
Musculoskeletal: No Clubbing, No Cyanosis and No Edema
Skin: No Rash
Neuro: AO x 3 and Nonfocal/grossly intact
Psych: Calm
Laboratory Results
-
01/07/24 16:44
01/07/24 16:44
Laboratory Results
Total Bilirubin 1.0 mg/dl (0.2-1.3) 01/07/24 16:44
AST 59 U/L (17-59) 01/07/24 16:44
ALT 65 U/L (0-50) H 01/07/24 16:44
Alkaline Phosphatase 109 U/L (38-126) 01/07/24 16:44
Lipase 47 U/L (23-300) 01/07/24 16:44
Data Reviewed
-
Lab Data: Labs Reviewed by me
Impression/Plan
-
#increased b/l LE weakness/elbow pain likely GBS flare
#hxt of GBS
-IVIGas per neuro
-neuro and hematology consulted
-PT/OT
-vital capacity per unit protocol
-oxy prn for pain
-gabapentin 200at bedtime
#leukocytosis unclear cause
-wbc 37.9
-obtain UA
-afebrile
-obtain blood culture
-ctm
#hyponatremia likely hypovolemic likely from diarrhea
-na 130
-normal saline continued
#diarrhea
-3-4 episodes of loose stools per day
-no diarrhea today
-if continued to have loose stools, consider stool studies
#diffusely decreased bone marrow signal intensity in the lumbar and thoracic spine concerning for diffuse bone marrow replacement disease.�
-noted elevated wbc
-hematology consulted
#hxt of allergic rhinitis/asthma
-nebs from home continued
DVT prophylaxis--Lovenox
CODE STATUS--full code
[2024-01-07] MEDS: NSS 1000 IV (20:03)
[2024-01-07] MEDS: SOLU-MEDROL 258 MG IV (20:04)
[2024-01-07] MEDS: SODIUM CHLORIDE 3% FOR INHALATION 0.5 VIAL INH (20:44)
[2024-01-07] MEDS: PULMICORT 0.5 MG INH (20:44)
[2024-01-07] MEDS: VENTOLIN NEBULES 2.5 MG INH (20:44)
[2024-01-07] MEDS: NEURONTIN 300 MG PO (21:46)
[2024-01-07] MEDS: GAMMAGARD 200 IV (21:48)
[2024-01-07] MEDS: ROXICODONE 10 MG PO (22:09)
[2024-01-07] MEDS: GAMMAGARD 50 IV (23:59)
[2024-01-08] VITALS (21 sets, daily range): BP systolic 100–141; BP diastolic 69–85; PULSE 96–99; O2SAT 93–99; BMI 26.8
--- NOTE | 2024-01-08 00:20 | PTCARENOTE ---
Pt received earlier in shift from ED to IMU. AAOx3. Admits to pain in B/L elbows, hands, feet. Pain rating of 5/10. Describes pain as stabbing at times. Medicated with scheduled Neurontin and prn Roxicodone with good relief. Denies headache.
Breathing without difficulty. VSS. Afebrile. Slight tachycardic 100-109 on CM. POX while awake 98%. When asleep pt does snore pox down to 88% and holding. Placed on 2L NC pox 94% while asleep. Neuro checks completed as documented. Pt admits to
numbness to left foot and foot drop to right foot, First 2 right hand fingers unable to bend. Able to hold all extremities in air without difficulty. Pupils equal and reactive +3 B/L. Lungs clear with occasional moist crystallizer operator cough. Pt admits to 8 days
of diarrhea. None since arriving to floor. Placed on enhanced precautions. Urinal at bedside. Skin intact. IVF's and steroid infusion initiated and given. IVIG started and increased per protocol without issue. Pt tolerated infusing well. VSS
remained stable. Blood cultures obtained. MRSA obtained and sent. Oriented to room and surroundings. Able to turn self in bed with some difficulty. Call ohara within reach. Will continue to monitor.
--- NOTE | 2024-01-08 02:50 | PTCARENOTE ---
On hourly assessment pt up and happy he was able to sleep for about 3 hours. Pt stated 'hey look' and raised his right hand and wiggled his fingers. He stated 'it's awesome.' Attempting to use urinal by self. Call ohara remains within reach. Will
continue to monitor.
[2024-01-08 04:57] LABS: COVID-19 Antigen Negative (Negative)
[2024-01-08 05:26] LABS: Hemoglobin 11.4 g/dL (13.0-18.0); Mean Corp Hgb Conc. 32.6 g/dL (33.0-37.0); Mean Corpuscular Hgb 28.1 pg (27.0-31.0); Mean Corpuscular Volume 86.4 fL (80.0-94.0); Mean Platelet Volume 9.3 fL (7.4-10.4); Platelet Count 351 10^3/uL (130-400); Red Blood Cell Count 4.05 10^6/uL (4.70-6.10); Red Cell Dist. Width 14.6 % (11.5-14.5); White Blood Cell Count 13.2 10^3/uL (4.8-10.8)
[2024-01-08 05:48] LABS: Blood Urea Nitrogen 15 mg/dl (9-20); Calcium 8.4 mg/dl (8.4-10.2); Carbon Dioxide 25 mmol/L (22-30); Chloride 100 mmol/L (98-107); Estimated Creatinine Clearance > 125 ml/min; Glucose 181 mg/dl (70-99); Potassium 4.2 mmol/L (3.5-5.1); Sodium 134 mmol/L (135-145); eGFR > 60.00
[2024-01-08] MEDS: PROTONIX 20 MG PO ×2 (07:40→20:03)
[2024-01-08] MEDS: SODIUM CHLORIDE 3% FOR INHALATION 0.5 VIAL INH ×3 (08:14→20:46)
[2024-01-08] MEDS: VENTOLIN NEBULES 2.5 MG INH ×3 (08:14→20:47)
[2024-01-08] MEDS: PULMICORT 0.5 MG INH ×2 (08:15→20:47)
--- NOTE | 2024-01-08 08:23 | W.PN.HOSP.TC ---
Today's Communication/Plan
-
see A/P
Assessment / Plan
Assessment / Plan
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
weakness and bilateral elbow pain and weakness. Patient could not sleep due to the pain.�Patient was taking Oxy and Advil with minimal relief. He felt unsteady on his feet and could not walk.
Patient was evaluated by neurology in the ED with plan to initiate IVIG, and heme CS
A/P:
# Increased BL LE weakness, new onset BL UE weakness and numbness, likely due to GBS flare
# GBS flare possible exacerbated by recent COVID infection ~2 weeks GEAR LAPPER
IVIG with IV steroid methylprednisone per neuro
Pt's weakness has improved
monitor NIF/VC TID
Pain control with Gabapentin HS and GEAR LAPPER oxycodone 10 mg Q 4H PRN
Neuro on board
PT/OT eval when able
# leukocytosis from admission likely related to GBS flare and reactive component
Leucocytosis has improved , cont to WBC
Follow blood culture
# Hyponatremia may be due to hypovolemic from diarrhea, improved
monitor clinically for diarrhea
Cont gentle IVF, follow sodium level
consider stool studies if diarrhea recurs
# Concern for lumbar and thoracic marrow infiltrative disease
hematology consulted
# Possible spinal cord compression at T5-T6 from canal stenosis due to disc herniation, noted on thoracic MRI 12/15/2023
This was reviewed with the neurosurgery Dr Mathur, who felt that the compression is not impressive, hence the pt's symptom is not structural in etiology
Given pt has improved symptoms, he does not need repeat MRI currently, cont to monitor closely
# hxt of allergic rhinitis/asthma
nebs from home continued
DVT prophylaxis--Lovenox SQ
CODE STATUS--full code
DW Neurosurgery and neuro
total time spent 51 min
Anticipated Discharge: > 48 hours
Subjective/Interval History
-
Date of Service: January 08, 2024
Objective Data
-
Labs:
Laboratory Results
01/08/24
05:13
WBC 13.2 H
Hgb 11.4 L
Hct 35.0 L
Plt Count 351
Sodium 134 L
Potassium 4.2
Chloride 100
Carbon Dioxide 25
BUN 15
Creatinine 0.4 L
Glucose 181 H
Calcium 8.4
Vital Signs:
Vital Signs
Temp Pulse Resp BP Pulse Ox
36.4 C 88 19 119/80 96
01/08/24 07:30 01/08/24 06:01 01/08/24 06:01 01/08/24 06:01 01/08/24 08:09
I&O
01/07/24 01/08/24 01/09/24
06:59 06:59 06:59
Intake Total 1325 / 1325
Output Total 600 / 600
Balance 725 / 725
Review of Systems
-
Neuro: Reports Weakness (improved in his arms and legs)
Physical Exam
-
General: Well Developed, Well Nourished, Comfortable and Conversant
HEENT: Oxygen (2L NC)
Respiratory: Clear to Auscultation and Non Labored Respirations; Negative Accessory Resp Muscle Use
Cardiac: Regular Rhythm and S1/S2
GI: Soft
Neuro: AO x 3
Psych: Calm and Intact Judgement/Insight
Data Reviewed
-
Labs: Labs Reviewed by me
--- NOTE | 2024-01-08 10:45 | CON.ONC ---
Impression
Impression
- GBS like poly-neuropathy
- leukocytosis with eosinophilia
- adult onset asthma
Plan
Plan
- recurrent admission with progressive weakness with c/f GBS. Neurology following and started on IVIG, high dose methylpred which he responded to on last admission.
eosinophilia again present on differential which had improved with tx of GBS symptoms on last admission. Pt was also noted to have BM uptake on MRI. He was seen by Dr. Barnard outpt and work-up for clonal hypereosinophilic syndrome underway with
pending molecular studies, tryptase, IgE levels. She had discussed plan for bone marrow bx due to MRI findings, differential which we can try to have completed while here due to relapse of neurological symptoms. Will consult IR tuesday if approved.
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 Placed consult to rheumatology and if in agreement there may
be role for cytoxan in addition to steroids, IVIG.
will continue to follow.
Patient History
History of Present Illness
Mr Del Real is a 53 yo M with adult onset asthma, recent diagnosis of presumed Guillain-Umana� syndrome admitted at [facility] December 13 through December 17, 2023 with progressive weakness, found to have sensory change and acute neuropathy findings on
EMG. He was treated with IVIG and steroids with significant improvement in weakness and the sensory symptoms in his feet. He had thorough work-up by neurology which included MRI that showed 'intrinsic cervical cord lesion does show degenerative
changes without any significant spinal stenosis, incidental note of a homogeneous marrow signal intensity'. Pt was also noted to have eosinophilia during his admission which improved and actually normalized at time of discharge. Additional lab
testing on last admission with negative MARILYN, Sjogren ab, + p-ANCA at 167. Eosinophils again markedly elevated at 25.3. He was referred to hematology outpt and saw Dr. Barnard on 01/03 who sent peripheral blood for flow cyto, molecular testing to
assess for clonal HES. Flow cytometry showed 64% eosinophils with no immunophenotypically abnormal B cell populations. Molecular testing, tryptase, IgE pending. SPEP was negative for last admission. Hgb and plts were normal on outpt CBC with
elevated WBC with predominately eosinophils. On this admission he has new mild anemia w/ hgb 11.4 g/dl, WBC 13.2 with elevation in predomin eosinophils however also neutrophils elevated. Denies rash, itching, persistent diarrhea. he has had ~ 40 lb
weight loss over past 2 months with feeling ill. Of note, he developed COVID after last discharge and had recurrent sinus congestion for which he was given course of abx, steroids by PCP started 1.5 weeks ago. Denies fevers, chills.
Hx notable for sinus polyps s/p resection 2 years ago, adult onset asthma diagnosed in May 2023 with recurrent episodes of wheezing, SOB, nasal congestion for which he has required recurrent course of steroids that will resolve symptoms temporarily
however then return once steroids tapers. He was started on Dupixent recently due to refractory symptoms.
Patient Medication
Medication Instructions Recorded Confirmed Last Taken Type
albuterol sulfate 2.5 mg/3 mL 2.5 mg inhalation R TID 12/13/23 01/07/24 01/06/24 History
(0.083 %) solution for nebulization Lung/Breathing Issues
albuterol sulfate 90 mcg/actuation 2 puff inhalation Q6HPRN PRN 12/13/23 01/07/24 12/12/23 History
aerosol inhaler shortness of breath
budesonide 0.5 mg/2 mL suspension 0.5 mg inhalation R BID 12/13/23 01/07/24 01/06/24 History
for nebulization Lung/Breathing Issues
montelukast 10 mg tablet 10 mg PO QPM Allergies 12/13/23 01/07/24 01/06/24 History
Mometasone Capsules 1 cap inhalation R DAILY 01/07/24 01/07/24 Unknown History
Lung/Breathing Issues
acetaminophen 325 mg tablet 650 mg PO Q6HPRN PRN mild pain 01/07/24 01/07/24 01/07/24 History
(Tylenol)
amoxicillin 875 mg-potassium 1 tab PO BID Infection 01/07/24 01/07/24 01/07/24 History
clavulanate 125 mg tablet
calcium carbonate 200 mg calcium 200 mg PO TIDPRN PRN gas pains 01/07/24 01/07/24 Unknown History
(500 mg) chewable tablet (Tums)
diazepam 5 mg tablet 5 mg PO HS Mental Health/Anxiety 01/07/24 01/07/24 Unknown History
dicyclomine 10 mg capsule 10 mg PO Q6HPRN PRN spasms 01/07/24 01/07/24 Unknown History
dupilumab 300 mg/2 mL subcutaneous 300 mg SC Q2W Autoimmune Disorder 01/07/24 01/07/24 12/29/23 History
pen injector (Dupixent)
gabapentin 300 mg capsule 300 mg PO HS Pain 01/07/24 01/07/24 Unknown History
ibuprofen 200 mg tablet (Advil) 200 mg PO Q6H PRN moderate pains 01/07/24 01/07/24 01/07/24 History
omeprazole 20 mg tablet,delayed 20 mg PO BID GERD 01/07/24 01/07/24 01/07/24 History
release
oxycodone 5 mg tablet 5 mg PO Q6HPRN PRN severe pain 01/07/24 01/07/24 01/07/24 History
prednisone 10 mg tablet 30 mg PO DIRECTED INFLAMMATION 01/07/24 01/07/24 01/07/24 History
10 mg
sodium chloride 3 % for 2 ml inhalation R TID 01/07/24 01/07/24 01/06/24 History
nebulization Lung/Breathing Issues
tramadol 50 mg tablet 50 mg PO Q4H Pain 01/07/24 01/07/24 01/07/24 History
Active Medications
Generic Name Dose Route Start Last Admin
Trade Name Freq PRN Reason Stop Dose Admin
Acetaminophen 650 mg 01/07/24 19:46
Acetaminophen 325 Mg Tablet PO 02/04/24 19:45
Q4HPRN PRN
mild pain/PRETTY/temp> 100.4F
Albuterol 2 puff 01/07/24 19:46
Albuterol Hfa [90 Mcg/Dose] Inhaler INH 02/04/24 19:45
R Q6HPRN PRN
shortness of breath
Protocol
Albuterol Sulfate 2.5 mg 01/07/24 20:00 01/08/24 08:14
Albuterol Nebs 2.5 Mg/3 Ml Ampul INH 02/04/24 19:59 2.5 mg
R TID LINO Administration
Protocol
Budesonide 0.5 mg 01/07/24 20:00 01/08/24 08:15
Budesonide (Pulmicort Respules) 0.5 Mg/2 Ml INH 02/04/24 19:59 0.5 mg
R BID LINO Administration
Protocol
Enoxaparin Sodium 40 mg 01/08/24 18:00
Enoxaparin Sodium 40 Mg/0.4 Ml Syringe SC 02/05/24 17:59
QPM LINO
Gabapentin 300 mg 01/07/24 22:00 01/07/24 21:46
Gabapentin 300 Mg Capsule PO 02/04/24 21:59 300 mg
HS LINO Administration
Methylprednisolone Sodium 258 mls @ 258 mls/hr 01/08/24 18:00
Succinate 1,000 mg/ Sodium IV 02/05/24 17:59
Chloride Q24H LINO
Sodium Chloride 1,000 mls @ 60 mls/hr 01/07/24 19:46 01/07/24 20:03
Nss IV 01/08/24 12:25 1,000 mls
.[id number] LINO Administration
Immune Globulin 5 gram in 50 mls @ 0 mls/hr 01/08/24 18:00
Gammagard IV 01/09/24 21:00
PER PROTOCOL LINO
Protocol
Per Protocol
Immune Globulin 20 gram in 200 mls @ 0 mls/hr 01/08/24 19:00
Gammagard IV 01/09/24 23:59
PER PROTOCOL LINO
Protocol
Per Protocol
Montelukast Sodium 10 mg 01/08/24 18:00
Montelukast Sodium 10 Mg Tablet PO 02/05/24 17:59
QPM LINO
Mometasone 0 cap 01/08/24 08:00
Inhalation INH 02/05/24 07:59
R DAILY LINO
Oxycodone HCl 10 mg 01/07/24 19:46 01/07/24 22:09
Oxycodone 10 Mg Regular Release Tablet PO 01/21/24 19:45 10 mg
Q4HPRN PRN Administration
moderate pain
Pantoprazole Sodium 20 mg 01/08/24 08:00 01/08/24 07:40
Pantoprazole 20 Mg Delayed Release Tablet PO 02/05/24 07:59 20 mg
BID LINO Administration
Sodium Chloride 0.5 vial 01/07/24 20:00 01/08/24 08:14
Sodium Chloride 3% For Inhalation 4 Ml Vial INH 02/04/24 19:59 0.5 vial
R TID LINO Administration
Sodium Chloride 0 flush 01/07/24 20:00
Sodium Chloride 0.9% (Flush) Syringe IV 02/04/24 19:59
PER PROTOCOL LINO
Review of Systems
-
History Source: Patient
Constitutional: Reports Weight Loss and Fatigue; Denies Fever
EENT: Reports Runny Nose
Respiratory: Reports Cough; Denies Trouble Breathing
Cardiac: Denies Chest Pain
GI: Denies Abdominal Pain or Nausea
Musculoskeletal: Reports Joint Pain, Myalgias and Muscle Weakness
Skin: Denies Itching, Rash or Sores
Neuro: Reports Weakness; Denies Dizzy or Headache
Hematologic/Lymphatic: Denies Swollen Glands or Bruising
Physical Exam
-
General: Well Developed, Well Nourished and No Apparent Distress
HEENT: Negative Jaundice
Musculoskeletal: Negative No Edema
Neurology: Non Focal
Skin: Negative Rash
Psych: Calm
Labs
Lab Results
WBC 13.2 10^3/uL (4.8-10.8) H 01/08/24 05:13
RBC 4.05 10^6/uL (4.70-6.10) L 01/08/24 05:13
Hgb 11.4 g/dL (13.0-18.0) L 01/08/24 05:13
Hct 35.0 % (39.0-52.0) L 01/08/24 05:13
MCV 86.4 fL (80.0-94.0) 01/08/24 05:13
MCH 28.1 pg (27.0-31.0) 01/08/24 05:13
MCHC 32.6 g/dL (33.0-37.0) L 01/08/24 05:13
RDW 14.6 % (11.5-14.5) H 01/08/24 05:13
Plt Count 351 10^3/uL (130-400) 01/08/24 05:13
MPV 9.3 fL (7.4-10.4) 01/08/24 05:13
Abs Immat Gran (auto) 0.1 10^3/uL (0-0.05) H 01/07/24 16:44
Absolute Neuts (auto) 10.4 10^3/uL (1.4-6.5) H 01/07/24 16:44
Absolute Lymphs (auto) 1.2 10^3/uL (1.2-3.4) 01/07/24 16:44
Absolute Monos (auto) 0.7 10^3/uL (0.1-0.6) H 01/07/24 16:44
Absolute Eos (auto) 25.3 10^3/uL (0-0.7) H 01/07/24 16:44
Absolute Basos (auto) 0.1 10^3/uL (0-0.2) 01/07/24 16:44
Immature Gran % 0.4 % (0-0.5) 01/07/24 16:44
Neutrophils % 27.6 % (42.2-75.2) L 01/07/24 16:44
Lymphocytes % 3.2 % (20.5-51.1) L 01/07/24 16:44
Monocytes % 1.9 % (1.7-9.3) 01/07/24 16:44
Eosinophils % 66.6 % (0-6) H 01/07/24 16:44
Basophils % 0.3 % (0-2) 01/07/24 16:44
Creatinine 0.4 mg/dL (0.7-1.3) L 01/08/24 05:13
Vital Signs
Vital Signs
Temp Pulse Resp BP Pulse Ox
97.5 F 100 18 119/80 96
01/08/24 07:30 01/08/24 08:25 01/08/24 08:25 01/08/24 06:01 01/08/24 08:25
--- NOTE | 2024-01-08 11:42 | CM ---
CM reviewed medical records. CM met with patient in room. Patient confirmed demographics. Patient lives independently with . Patient does not have a history of VN, SNF or DME. Patient is active with his PCP Dr. Aguero. Patient uses [facility].
PLAN: Pending PT evaluation for further recommendations.
--- NOTE | 2024-01-08 12:25 | W.PN.NEURO.1 ---
Today's Communication / Plan
-
continue ivig, ivsm
vc/nif
Neuro Assessment/Plan
Assessment
VANESSA MAGUIRE is a 53 year old M who has presented to the hospital with worsening neuropathic pain, distal>proximal upper and lower extremity weakness and ambulatory dysfunction with recent diagnosis of GBS; current presentation is concerning for a
relapse/progression into CIDP.� Unclear if this was provoked in part by COVID infection or has a paraneoplastic component.�Another possibility raised by h/onc is eosinophilic granulomatosis with polyangitis.
Plan
Recommendations:�
1.� continue IVIG--appreciate assistance from pharmacy--1g/kg split over 3 days so 25g for three doses total; day #2
2.� continue IVSM 1g once daily x 3-5 days depending upon course; day #2
3.� continue gabapentin 300mg qhs
4.� fall precautions, neurochecks
5.� appreciate h/onc evaluation; rheum has been consulted as well.
6.� vital capacity/NIF TID--stable
7. concern raised for repeating spinal imaging--will hold off for now given improvement in symptoms
Will continue to follow.
Reviewed plan with and patient at length.
Critical care time 40 mins
Subjective/Objective
Subjective Data
Date of Service: January 08, 2024
pain, numbness and weakness all significant improved
Objective Data
Vital Signs
Temp Pulse Resp BP Pulse Ox
98.2 F 100 18 119/80 96
01/08/24 11:30 01/08/24 08:25 01/08/24 08:25 01/08/24 06:01 01/08/24 08:25
Lab Results
01/08/24 05:13
01/08/24 05:13
Sodium 134 mmol/L (135-145) L 01/08/24 05:13
Potassium 4.2 mmol/L (3.5-5.1) 01/08/24 05:13
BUN 15 mg/dl (9-20) 01/08/24 05:13
Glucose 181 mg/dl (70-99) H 01/08/24 05:13
Calcium 8.4 mg/dl (8.4-10.2) 01/08/24 05:13
Patient Allergies
No Known Allergies Allergy (Verified 01/07/24 17:40)
Physical Exam
-
The patient is awake, alert and oriented x 3. He is able to follow commands and answer questions appropriately. There is no aphasia or dysarthria. On cranial nerve assessment, pupils are 3 mm bilateral, round and reactive to light and
accommodation. Visual mas are full. Extraocular movements are intact. Facial sensations are intact and bilaterally symmetrical, there is no facial asymmetry. Hearing is intact bilaterally� to normal conversation volume. Tongue palate and uvula
are midline. Sternocleidomastoid strengths are full bilaterally. Motor strengths are 5- proximally in BUE, biceps/triceps 5-, hand continuous process tanner rotary drum 3 bilaterally, worse on right; BLE 5- except R ankle dorsiflexion which remains 2/5, plantar 4/5, L ankle
dorsiflexion 3/5, plantarflexion 4/5. There is no drift or involuntary movement noted. Deep tendon reflexes are trace throughout except at ankles where they were absent; length dependent sensory loss to ankles bilaterally and wrists bilaterally.
Coordination is intact by finger to nose bilaterally.�
--- NOTE | 2024-01-08 12:45 | PTCARENOTE ---
Assumed care of pt at shift change - reported having a restful night. OOB to bathroom with minimal assist and rolling walker. Generalized weakness plus R foot drop and left arm weakness. Denied pain at that time. 95% on 2L O2; HR ~ 90-100's, NSR
on monitor. Will continue to monitor and assess.
[2024-01-08] MEDS: GAMMAGARD 50 IV (15:25)
[2024-01-08] MEDS: GAMMAGARD 200 IV (15:25)
[2024-01-08] MEDS: BENTYL 10 MG PO (17:35)
[2024-01-08] MEDS: SINGULAIR 10 MG PO (17:37)
[2024-01-08] MEDS: LOVENOX 40 MG SC (17:37)
[2024-01-08] MEDS: SOLU-MEDROL 258 MG IV (18:00)
--- NOTE | 2024-01-08 21:27 | PTCARENOTE ---
Patient with continued bl hand and feet pain. Able to make his needs known. Requesting Roxicodone for moderate pain. Able to ambulate in room with RW.
[2024-01-08] MEDS: ROXICODONE 10 MG PO (22:02)
[2024-01-08] MEDS: NEURONTIN 300 MG PO (22:02)
[2024-01-09] VITALS (23 sets, daily range): BP systolic 115–136; BP diastolic 64–95; PULSE 104; O2SAT 95
[2024-01-09 06:01] LABS: Hematocrit 32.9 % (39.0-52.0); Hemoglobin 10.7 g/dL (13.0-18.0); Mean Corp Hgb Conc. 32.5 g/dL (33.0-37.0); Mean Corpuscular Hgb 27.7 pg (27.0-31.0); Mean Corpuscular Volume 85.2 fL (80.0-94.0); Mean Platelet Volume 9.5 fL (7.4-10.4); Platelet Count 393 10^3/uL (130-400); Red Blood Cell Count 3.86 10^6/uL (4.70-6.10); Red Cell Dist. Width 14.9 % (11.5-14.5); White Blood Cell Count 17.4 10^3/uL (4.8-10.8)
[2024-01-09 06:43] LABS: Blood Urea Nitrogen 22 mg/dl (9-20); Calcium 8.7 mg/dl (8.4-10.2); Carbon Dioxide 26 mmol/L (22-30); Chloride 104 mmol/L (98-107); Estimated Creatinine Clearance > 125 ml/min; Glucose 169 mg/dl (70-99); Potassium 4.5 mmol/L (3.5-5.1); Sodium 133 mmol/L (135-145); eGFR > 60.00
[2024-01-09] MEDS: PULMICORT 0.5 MG INH ×2 (07:57→20:23)
[2024-01-09] MEDS: VENTOLIN NEBULES 2.5 MG INH ×3 (07:57→20:23)
[2024-01-09] MEDS: SODIUM CHLORIDE 3% FOR INHALATION 0.5 VIAL INH ×3 (07:58→20:22)
[2024-01-09] MEDS: PROTONIX 20 MG PO ×2 (08:18→19:53)
--- NOTE | 2024-01-09 08:27 | W.PN.HOSP.TC ---
Today's Communication/Plan
-
see A/P
Assessment / Plan
Assessment / Plan
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
weakness and bilateral elbow pain and weakness. Patient could not sleep due to the pain.�Patient was taking Oxy and Advil with minimal relief. He felt unsteady on his feet and could not walk.
Patient was evaluated by neurology in the ED with plan to initiate IVIG, and heme CS
A/P:
# Increased BL LE weakness, new onset BL UE weakness and numbness, concern for relapse/progression into CIDP vs eosinophilic granulomatosis with polyangiitis.
IVIG x3 days and IV steroid methylprednisone per neuro (cont SURVEY WORKER PPI for gastric protection while on steroid)
monitor NIF/VC TID
Pain control with Gabapentin HS and SURVEY WORKER oxycodone 10 mg Q 4H PRN , pain is under control
Neuro on board
EMG per Neuro
with concern of eosinophilic granulomatosis with polyangiitis, recc rheumatology eval outpt
PT/OT eval recc HH
# Concern for lumbar and thoracic marrow infiltrative disease
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
Rheumatology consult placed
# Recent COVID infection ~2 weeks SURVEY WORKER
COVID neg this admission
# leukocytosis likely reactive and steroid induced
blood culture obtained from admission negative for growth
# Hyponatremia may be due to hypovolemic from diarrhea SURVEY WORKER, improved
monitor clinically for diarrhea
Observe off IVF, follow sodium level
# Diarrhea has recurred during hospital course
check C Diff and norovirus to r/o
monitor clinically
# Possible spinal cord compression at T5-T6 from canal stenosis due to disc herniation, noted on thoracic MRI 12/15/2023
This was reviewed with the neurosurgery Dr Mathur, who felt that the compression is not impressive, hence pt's symptom is not structural in etiology
Given pt has improved symptoms, repeat MRI is not needed currently, cont to monitor closely
# hxt of allergic rhinitis/asthma
nebs from home continued
DVT prophylaxis--Lovenox SQ
CODE STATUS--full code
DW Neuro
DW at bedside
total time spent 51 min
Anticipated Discharge: 24 - 48 hours
Subjective/Interval History
-
Date of Service: January 09, 2024
Objective Data
-
Labs:
Laboratory Results
01/09/24
05:51
WBC 17.4 H
Hgb 10.7 L
Hct 32.9 L
Plt Count 393
Sodium 133 L
Potassium 4.5
Chloride 104
Carbon Dioxide 26
BUN 22 H
Creatinine 0.4 L
Glucose 169 H
Calcium 8.7
Vital Signs:
Vital Signs
Temp Pulse Resp BP Pulse Ox
36.7 C 81 16 119/70 95
01/09/24 07:55 01/09/24 08:03 01/09/24 08:03 01/09/24 04:00 01/09/24 08:03
I&O
01/08/24 01/09/24 01/10/24
06:59 06:59 06:59
Intake Total 1325 / 1325 480 / 480
Output Total 600 / 600
Balance 725 / 725 480 / 480
Review of Systems
-
Musculoskeletal: Reports Muscle Weakness (BL LE weakness)
Physical Exam
-
General: Well Developed, Well Nourished, No Apparent Distress, Comfortable and Conversant
Respiratory: Clear to Auscultation and Non Labored Respirations; Negative Accessory Resp Muscle Use
Cardiac: Regular Rhythm and S1/S2
GI: Soft
Neuro: Awake, Alert and Other (decreased reflexes )
Psych: Calm and Intact Judgement/Insight
Data Reviewed
-
Labs: Labs Reviewed by me
--- NOTE | 2024-01-09 11:40 | W.PN.NEURO.1 ---
Today's Communication / Plan
-
-Continue high dose steroids methylprednisolone day 3/5
--Expect he will need to be on 50-60 mg Prednisone daily after finishing high dose IV steroids
-Finish dose of IVIG day 3/3 today
-Monitor with neurologic checks and monitoring respiratory function
-EMG testing
-Requesting rheumatology consultation
-Consideration for biopsy with least invasive means, nerve or skin biopsy would most likely be preferable to lung biopsy
-Not recommending further spinal imaging
Will continue to follow
Neuro Assessment/Plan
Assessment
VANESSA MAGUIRE is a 53 year old M who has presented to the hospital with worsening neuropathic pain, distal>proximal upper and lower extremity weakness and ambulatory dysfunction with recent diagnosis of .
GBS
Initially the diagnosis was thought to be Guillain-Umana� syndrome, however patient developed new deficits with a right foot last week and then has had some bilateral hand weakness and sensory changes represent new and progressive deficits. In
retrospect this was not Guillan [place]' syndrome which is in general monophasic given development of new and progressive deficits due to neuropathy.
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
change in the hands as well.
Patient does show eosinophilia on CBC differential testing and also has asthma as well as a positive P ANCA. Has had weight loss of around 20-30 pounds as well.
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
Differential diagnosis includes
-Neuropathy due to other vasculitis such as polyangiitis or microscopic polyangiitis
-CIDP
-Paraneoplastic mediated polyneuropathy
Subjective/Objective
Subjective Data
Date of Service: January 09, 2024
No acute events, pain is better, still with weakness in the right index finger and thumbs, paresthesia in the hands as well, some loose stools, no dysarthria or dysphagia.
Objective Data
Vital Signs
Temp Pulse Resp BP Pulse Ox
97.9 F 103 16 115/74 95
01/09/24 11:23 01/09/24 09:00 01/09/24 08:03 01/09/24 08:00 01/09/24 08:03
Lab Results
01/09/24 05:51
01/09/24 05:51
Sodium 133 mmol/L (135-145) L 01/09/24 05:51
Potassium 4.5 mmol/L (3.5-5.1) 01/09/24 05:51
BUN 22 mg/dl (9-20) H 01/09/24 05:51
Glucose 169 mg/dl (70-99) H 01/09/24 05:51
Calcium 8.7 mg/dl (8.4-10.2) 01/09/24 05:51
Patient Allergies
No Known Allergies Allergy (Verified 01/07/24 17:40)
Review of Systems
-
History Source: Patient
All other systems: Reviewed and negative
Constitutional: No Symptoms
EENT: No Symptoms Reported
Respiratory: No Symptoms
Cardiac: No Symptoms
Abdomen/GI: No Symptoms
Genitourinary: No Symptoms
Musculoskeletal: No Symptoms
Skin: No Symptoms
Neuro: Weakness and Numbness; Negative Speech Problem
Endocrine: No Symptoms
Hematologic / Lymphatic: No Symptoms
Allergy / Immunology: No Symptoms
Physical Exam
-
General: Well Nourished
Eyes: No Ptosis
HEENT: Normocephalic
Neck: No Bruits Bilaterally
Respiratory: Clear to Auscultation
Cardiac: Regular Rhythm
GI: Normal Bowel Sounds
Skin: Unremarkable
Extremities: No Clubbing
Psych: Unremarkable
Extended Neurological Exam
Mood & Affect: Mood Unremarkable and Affect Unremarkable
Attention Span & Concentration: Awake, Alert and Interactive
Memory: Unremarkable
Tremor: Hand Tremor Absent
Involuntary Movement: None
Speech: Quality Unremarkable and Quantity Unremarkable; Negative Expressive Aphasia, Receptive Aphasia or Dysarthric
Cranial Nerve II: Left Eye: Pupillary Reactivity Unremarkable, Pupillary Size Unremarkable and Visual Gibbs Intact
Cranial Nerve II: Right Eye: Pupillary Reactivity Unremarkable, Pupillary Size Unremarkable and Visual Gibbs Intact
Cranial Nerves III, IV, : Extraocular Movement: Extraocular Movement Full in all Directions
Cranial Nerve XII: Tongue Protusion: Midline
Muscle Strength, Overall: Other (Right ankle dorsiflexion 2/5, plantarflexion 4/5, left ankle dorsiflexion/plantarflexion 5/5, hip flexion adduction knee extension 5/5 bilaterally, right hand index finger flexion weakness, thumb opposition weakness,
no fasciculations, normal muscle tone)
Pronator Drift: No Drift in Upper Extremities
Deep Tendon Reflexes: Other (Absent in achilles bilaterally, present 2+ patella brachioradialis, biceps, triceps)
Vibration Sensation: Reduced Mildly Distally
Touch Sensation: Other (Reduced to pinprick distally in feet bilaterally as well as hands)
Coordination: [id number] Testing Unremarkable
Data Reviewed
-
MRI Cervical Spine: Report Reviewed and Image Reviewed
MRI Thoracic Spine: Report Reviewed and Image Reviewed
MRI Lumbar Spine: Report Reviewed and Image Reviewed
EMG: Ordered and Pending
[2024-01-09] MEDS: BENTYL 10 MG PO (15:12)
[2024-01-09] MEDS: GAMMAGARD 200 IV (15:28)
--- NOTE | 2024-01-09 16:58 | W.PN.ONC2 ---
Today's Communication / Plan
-
Continue supportive care
Await Chris-2 result. So far no evidence of clonality. No splenomegaly on exam to suggest MPD. Hold off on bone marrow biopsy for now.
Await remainder of Motor Sensory Neuropathy, Motor Neuropathy and Paraneoplastic Ab panel.
No evidence of malignancy on history or exam.
Impression
Impression
- GBS like poly-neuropathy
- leukocytosis with eosinophilia
- adult onset asthma
Plan
Plan
Recurrent admission with progressive weakness, now felt to be NOT c/w GBS with c/f GBS
Eosinophilia again present on differential which had improved with tx of GBS symptoms on last admission. Pt was also noted to have BM uptake on MRI.
- Tryptase normal, IgE modestly elevated as is IgG. Not suggestive of clonal process in marrow
- Flow cytometry negative for lymphoproliferative disorder with caveat that pt had been on steroids.
- Await Chris-2
- With driver merchandiser mutation panel otherwise negative, will hold off on bone marrow biopsy for now. He was
Paraneoplastic antibody panel positive for LGI1 antibody with low titer, defer to Neurology for interpretation. Results on chart.
Subjective/Objective
Chief Complaint
[facility] follow up of eosinophilia
Subjective
Stlll with various neurologic deficits although awake, alert, appropriate.
Vital Signs:
Vital Signs
Temp Pulse Resp BP Pulse Ox
97.9 F 99 16 126/77 94
01/09/24 15:00 01/09/24 16:52 01/09/24 14:12 01/09/24 16:52 01/09/24 16:34
Lab Results:
Laboratory Data
WBC 17.4 10^3/uL (4.8-10.8) H 01/09/24 05:51
Hgb 10.7 g/dL (13.0-18.0) L 01/09/24 05:51
Plt Count 393 10^3/uL (130-400) 01/09/24 05:51
eGFR > 60.00 01/09/24 05:51
From [facility], 01/04/24:
WBC 28.6, Hgb 13.5, PLT 471, ANC 9200, eos 17,500.
JAK2 pending. MPN with hypereosinophilia FISH - negative for PDGFRA, PDGFRB, FGFR1. Thyroid panel normal. LDH 301 (ULN 224)
Tryptase 2.5 (normal)
IgE 685 (ULN 495) IgG 1698 (ULN 1600 113, IgA 104, IgM 57.
Motor or sensory neuropathy panel: Pending
Motor neuropathy panel: Pending
Paraneoplastic antibody panel: Positive for LGI 1 antibody, titer 1: 32, VGCC antibody pending, remainder negative
Physical Exam
Awake, alert, non-toxic
HEENT: Moist Mucous Membranes; No Jaundice
Cardiology: Normal Sinus Rhythm, S1 and S2
Pulmonary: Clear; No Wheezes
GI: Soft and No Organomegaly; No Hepatomegaly or Spleenomegaly
Extremities: No C/C/E; No Phlebitic Signs
Review of Systems
Review of Systems
Constitutional: Reports Fatigue; Denies Fever
Head: Denies Sore Throat or Hearing Loss
Respiratory: Denies Dyspnea or Cough
Cardiovascular: Denies Chest Pain or Palpitations
Gastrointestinal: Denies Nausea/Vomiting or Diarrhea
Genitourinary: Denies Hematuria
Skin: Denies Rash or Pruritis
Hem/Lymphatic: Denies Easy Bruising, Night Sweats or Swollen Glands
--- NOTE | 2024-01-09 17:12 | CON.RHM ---
Assessment/Plan
-
Recommend order UA, full ANCA panel including MPO and PR3 antibodies
Recommend general surgery consult for sural nerve biopsy�
Continue IVIG and pulsed dose steroids
Recommending holding Dupixent
Recommend stool testing for parasites
In future, could consider input from Dr. Naranjo at [facility].
Will follow tomorrow.�
History of Present Illness
-
Pt is a 53 yo male hx asthma who presented to [facility] ED on 01/07 which right foot drop and b/l LE weakness. Rheum consulted due to concerns with eosinophilic granulomatosis with polyangiitis - elevated MPO at last admission, along with continued
eosinophilia. Before this visit, pt presented to ED at end of November with b/l LE weakness and left-hand numbness, weakness and tingling. He was since seen by neuro who gave him dx of Gullain- [place]. Since then, he has been tx with IVIG and noted
20% improvement. He notes last week experiencing sciatic like pain in right leg. next day severe elbow pain, then pain at b/l hands. Currently, due to new onset right foot deficits, neuro does not think Gullain [place], leaning more towards
neuropathy due to systemic vasculitis. He denies hx of pneumonia, SOB or dysphagia. Denies rash Notes diarrhea x 1.5 weeks that has been improving. Pt notes starting Dupixent a few weeks, rx by Pulm, only had first dose. Since admission on 12/13/23,
labs have shown Eosinophilia.
Review of Systems
-
General: Shortness of Breath: No and Tingling: Yes
Vasculitis: Rash: No
Data Reviewed
Patient Allergies
Allergy/AdvReac Type Severity Reaction Status Date / Time
No Known Allergies Allergy Verified 01/07/24 17:40
Physical Exam
-
Constitutional: Alert and Oriented
Skin: Rash (no rash)
Neurological: Other (weakness of right foot, left foot strength intact)
Psych: Appropriate Behavior
[2024-01-09] MEDS: SOLU-MEDROL 258 MG IV (17:33)
[2024-01-09] MEDS: GAMMAGARD 50 IV (17:57)
[2024-01-09] MEDS: LOVENOX 40 MG SC (17:57)
[2024-01-09] MEDS: SINGULAIR 10 MG PO (17:57)
--- NOTE | 2024-01-09 20:51 | PTCARENOTE ---
Received pt from [facility]. Pt is AAOx3, right foot drop. NSR/sinus tach on the monitor. On RA O2 sat 93%, lungs clear. BRPx1 w/ RW. Pt c/o 02/21 b/l hand pain, PRN pain med given (see MAR). Pt is laying comfortable in bed with call ohara in reach.
[2024-01-09] MEDS: ROXICODONE 10 MG PO (22:10)
[2024-01-09] MEDS: NEURONTIN 400 MG PO (22:10)
[2024-01-10] VITALS (11 sets, daily range): BP systolic 102–143; BP diastolic 45–75
[2024-01-10] MEDS: ROXICODONE 10 MG PO ×2 (05:00→20:20)
[2024-01-10 05:13] LABS: % Basophils 0.2 % (0-2); % Immature Granulocytes 1.6 % (0-0.5); % Lymphocytes 7.1 % (20.5-51.1); % Monocytes 2.8 % (1.7-9.3); % Neutrophils 88.3 % (42.2-75.2); Absolute Immature Granulocytes 0.2 10^3/uL (0-0.05); Absolute Lymphocytes 0.9 10^3/uL (1.2-3.4); Absolute Monocytes 0.3 10^3/uL (0.1-0.6); Absolute Neutrophils 10.8 10^3/uL (1.4-6.5); Hematocrit 33.2 % (39.0-52.0); Hemoglobin 10.9 g/dL (13.0-18.0); Mean Corp Hgb Conc. 32.8 g/dL (33.0-37.0); Mean Corpuscular Hgb 28.1 pg (27.0-31.0); Mean Corpuscular Volume 85.6 fL (80.0-94.0); Mean Platelet Volume 9.4 fL (7.4-10.4); Nucleated Red Blood Cells % 0 % (-); Platelet Count 380 10^3/uL (130-400); Red Blood Cell Count 3.88 10^6/uL (4.70-6.10); Red Cell Dist. Width 15.1 % (11.5-14.5); White Blood Cell Count 12.2 10^3/uL (4.8-10.8)
[2024-01-10 05:35] LABS: Blood Urea Nitrogen 29 mg/dl (9-20); Carbon Dioxide 26 mmol/L (22-30); Chloride 103 mmol/L (98-107); Estimated Creatinine Clearance > 125 ml/min; Glucose 167 mg/dl (70-99); Potassium 4.2 mmol/L (3.5-5.1); Sodium 137 mmol/L (135-145); eGFR > 60.00
--- NOTE | 2024-01-10 07:12 | PTCARENOTE ---
Pt isolation now Standard precautions as C Diff and Norovirus neg. no additional loose stools.
[2024-01-10] MEDS: PULMICORT 0.5 MG INH ×2 (07:44→19:48)
[2024-01-10] MEDS: SODIUM CHLORIDE 3% FOR INHALATION 0.5 VIAL INH ×3 (07:45→19:49)
[2024-01-10] MEDS: VENTOLIN NEBULES 2.5 MG INH ×3 (07:45→19:48)
[2024-01-10] MEDS: NEURONTIN 100 MG PO (08:07)
[2024-01-10] MEDS: PROTONIX 20 MG PO ×2 (08:07→18:15)
--- NOTE | 2024-01-10 08:42 | W.PN.NEURO.1 ---
Addendum entered and electronically signed by Leonel Mike MD 01/10/24 12:07:
Studies reviewed.
I have personally examined the patient. I reviewed and agree with the SIGN BUILDER SUPERVISOR's Note.
My addenda:
Awake, alert, interactive. No acute distress.
Speech intact.
Follows 2-step requests w/o difficulty. No tremor.
Extra-ocular movements grossly intact.
Facial movements full and symmetric. Hearing intact to normal conversational volume.
Normal UE movements bilaterally.
Right foot dorsiflexion 1/5, left hand 5-/5
Neck: full ROM.
Chest: no dyspnea
Heart: no JVD
Ext: (-) Clubbing, (-) Cyanosis, (-) Edema
IMPRESSIONS/RECOMMENDATIONS:
Abrupt onset of worsening eosinophilic polyneuropathy with episodic progression and positive ANCA. Likely the symptoms were accumulated as aN acute and aggressive chronic inflammatory demyelinating polyneuropathy
Transfer patient to undergo sural nerve biopsy at [facility]
Continue high-dose steroids with goal of 5 days of therapy
Check CT chest abdomen pelvis if OK with Heme-Onc
supportive care
Follow EMG repeat results
Continue Gabapentin, consider change to Pregabalin
D/W patient / family
Will continue to follow patient.
Original Note:
Today's Communication / Plan
-
.
Neuro Assessment/Plan
Assessment
VANESSA MAGUIRE is a 53 year old M who has presented to the hospital with worsening neuropathic pain, distal>proximal upper and lower extremity weakness and ambulatory dysfunction with recent diagnosis of GBS.
Initially the diagnosis was thought to be Guillain-Umana� syndrome, however patient developed new deficits with a right foot last week and then has had some bilateral hand weakness and sensory changes represent new and progressive deficits. In
retrospect this was not Guillan [place]' syndrome which is in general monophasic given development of new and progressive deficits due to neuropathy.
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
change in the hands as well.
Patient does show eosinophilia on CBC differential testing and also has asthma as well as a positive P ANCA. Has had weight loss of around 20-30 pounds as well.
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
Differential diagnosis includes
-Neuropathy due to other vasculitis such as polyangiitis or microscopic polyangiitis
-CIDP
-Paraneoplastic mediated polyneuropathy
Plan
-Repeat EMG today
-Consider CT chest/abd/pelvis
-3 day course of IVIG completed on 01/09/24
-Continue IVSM 1g once daily x 3-5 days depending upon course; day #4 today 01/10/24
-Continue gabapentin 300mg qhs
-Fall precautions, neuro checks
-Appreciate h/onc evaluation; rheum has been consulted as well.
-Vital capacity/NIF TID--stable
-Concern raised for repeating spinal imaging--will hold off for now given improvement in symptoms.
-Will continue to follow.
Subjective/Objective
Subjective Data
Date of Service: January 10, 2024
No acute events overnight. Patient reports no improvement in symptoms today. He denies any dizziness, headache, vision changes, speech/swallow difficulty, nausea, chest pain, palpitations, and shortness of breath.
Objective Data
Vital Signs
Temp Pulse Resp BP Pulse Ox
97.5 F 74 13 125/72 98
01/10/24 08:00 01/10/24 08:00 01/10/24 08:00 01/10/24 08:00 01/10/24 08:00
Lab Results
01/10/24 04:56
01/10/24 04:56
Sodium 137 mmol/L (135-145) 01/10/24 04:56
Potassium 4.2 mmol/L (3.5-5.1) 01/10/24 04:56
BUN 29 mg/dl (9-20) H 01/10/24 04:56
Glucose 167 mg/dl (70-99) H 01/10/24 04:56
Calcium 9.0 mg/dl (8.4-10.2) 01/10/24 04:56
Patient Allergies
No Known Allergies Allergy (Verified 01/07/24 17:40)
Review of Systems
-
History Source: Patient
EENT: Negative Swallowing Difficulty
Respiratory: Negative Trouble Breathing
Cardiac: Negative Chest Pain or Palpitations
Abdomen/GI: Diarrhea
Genitourinary: Negative Difficulty Voiding
Musculoskeletal: Other (R foot droop)
Neuro: Numbness (bilateral hands, severe in b/l thumbs and 2nd fingers)
Physical Exam
-
General: Well Developed, Well Nourished and No Apparent Distress
Eyes: No Ptosis and PERRLA
HEENT: Normocephalic and Atraumatic
Neck: Full Range of Motion
Respiratory: No Dyspnea
GI: Non-distended
Extremities: No Clubbing, No Cyanosis and No Edema
Psych: Unremarkable
Extended Neurological Exam
Mood & Affect: Mood Unremarkable and Affect Unremarkable
Attention Span & Concentration: Awake, Alert and Interactive
Memory: Unremarkable (AAOx3) and Able to Recall
Tremor: Hand Tremor Absent and Head Tremor Absent
Involuntary Movement: None
Speech: Quality Unremarkable, Quantity Unremarkable and Rate of Production Unremarkable
Cranial Nerve II: Left Eye: Pupillary Reactivity Unremarkable, Pupillary Size Unremarkable and Visual Gibbs Intact
Cranial Nerve II: Right Eye: Pupillary Reactivity Unremarkable, Pupillary Size Unremarkable and Visual Gibbs Intact
Cranial Nerves III, IV, : Extraocular Movement: Extraocular Movement Full in all Directions
Cranial Nerve VII: Facial Symmetry: Normal Facial Symmetry
Cranial Nerve VIII: Hearing: Unremarkable Hearing to Normal Conversational Volume
Cranial Nerves IX, X: Palate Movement: Palate Elevation Symmetric
Cranial Nerve XII: Tongue Protusion: Midline
Muscle Strength, Overall: Other (left dorsi/plantarflexion 5/5, R dorsiflexion 1/5/plantarflexion 2/5. R hand thumb and index finger weakness.)
Muscle Bulk & Tone: Bulk Unremarkable and Tone Unremarkable
Pronator Drift: No Drift in Upper Extremities and No Drift in Lower Extremities
Deep Tendon Reflexes: Other (absent bilateral Achilles, 2+ otherwise.)
Coordination: [id number] Testing Unremarkable
Babinski Sign: Absent Bilaterally
Data Reviewed
-
MRI Head: Report Reviewed and Image Reviewed
MRI Cervical Spine: Report Reviewed and Image Reviewed
MRI Thoracic Spine: Report Reviewed and Image Reviewed
MRI Lumbar Spine: Report Reviewed and Image Reviewed
Labs: Report Reviewed
EMG: Pending
Reviewed with: Physician and Patient
Medications
-
Active Medications
Generic Name Dose Route Start Last Admin
Trade Name Freq PRN Reason Stop Dose Admin
Acetaminophen 650 mg 01/07/24 19:46
Acetaminophen 325 Mg Tablet PO 02/04/24 19:45
Q4HPRN PRN
mild pain/PRETTY/temp> 100.4F
Albuterol 2 puff 01/07/24 19:46
Albuterol Hfa [90 Mcg/Dose] Inhaler INH 02/04/24 19:45
R Q6HPRN PRN
shortness of breath
Protocol
Albuterol Sulfate 2.5 mg 01/07/24 20:00 01/10/24 07:45
Albuterol Nebs 2.5 Mg/3 Ml Ampul INH 02/04/24 19:59 2.5 mg
R TID LINO Administration
Protocol
Budesonide 0.5 mg 01/07/24 20:00 01/10/24 07:44
Budesonide (Pulmicort Respules) 0.5 Mg/2 Ml INH 02/04/24 19:59 0.5 mg
R BID LINO Administration
Protocol
Dicyclomine HCl 10 mg 01/08/24 12:26 01/09/24 15:12
Dicyclomine 10 Mg Capsule PO 02/05/24 12:25 10 mg
Q6HPRN PRN Administration
spasms
Enoxaparin Sodium 40 mg 01/08/24 18:00 01/09/24 17:57
Enoxaparin Sodium 40 Mg/0.4 Ml Syringe SC 02/05/24 17:59 40 mg
QPM LINO Administration
Gabapentin 100 mg 01/10/24 08:00 01/10/24 08:07
Gabapentin 100 Mg Capsule PO 02/07/24 07:59 100 mg
DAILY LINO Administration
Gabapentin 400 mg 01/09/24 22:00 01/09/24 22:10
Gabapentin 400 Mg Capsule PO 02/06/24 21:59 400 mg
HS LINO Administration
Methylprednisolone Sodium 258 mls @ 258 mls/hr 01/09/24 18:00 01/09/24 17:33
Succinate 1,000 mg/ Sodium IV 01/13/24 18:59 258 mls
Chloride Q24H LINO Administration
Montelukast Sodium 10 mg 01/08/24 18:00 01/09/24 17:57
Montelukast Sodium 10 Mg Tablet PO 02/05/24 17:59 10 mg
QPM LINO Administration
Mometasone 0 cap 01/08/24 08:00
Inhalation INH 02/05/24 07:59
R DAILY LINO
Oxycodone HCl 10 mg 01/07/24 19:46 01/10/24 05:00
Oxycodone 10 Mg Regular Release Tablet PO 01/21/24 19:45 10 mg
Q4HPRN PRN Administration
moderate pain
Pantoprazole Sodium 20 mg 01/10/24 08:18
Pantoprazole 20 Mg Delayed Release Tablet PO 02/05/24 07:59
BID@0600,1800 [facility]
Sodium Chloride 0.5 vial 01/07/24 20:00 01/10/24 07:45
Sodium Chloride 3% For Inhalation 4 Ml Vial INH 02/04/24 19:59 0.5 vial
R TID LINO Administration
Sodium Chloride 0 flush 01/07/24 20:00
Sodium Chloride 0.9% (Flush) Syringe IV 02/04/24 19:59
PER PROTOCOL [facility]
Home Medications
Medication Instructions Recorded
albuterol sulfate 2.5 mg/3 mL 2.5 mg inhalation R TID 12/13/23
(0.083 %) solution for nebulization Lung/Breathing Issues
albuterol sulfate 90 mcg/actuation 2 puff inhalation Q6HPRN PRN 12/13/23
aerosol inhaler shortness of breath
budesonide 0.5 mg/2 mL suspension 0.5 mg inhalation R BID 12/13/23
for nebulization Lung/Breathing Issues
montelukast 10 mg tablet 10 mg PO QPM Allergies 12/13/23
Mometasone Capsules 1 cap inhalation R DAILY 01/07/24
Lung/Breathing Issues
acetaminophen 325 mg tablet 650 mg PO Q6HPRN PRN mild pain 01/07/24
(Tylenol)
amoxicillin 875 mg-potassium 1 tab PO BID Infection 01/07/24
clavulanate 125 mg tablet
calcium carbonate 200 mg calcium 200 mg PO TIDPRN PRN gas pains 01/07/24
(500 mg) chewable tablet (Tums)
diazepam 5 mg tablet 5 mg PO HS Mental Health/Anxiety 01/07/24
dicyclomine 10 mg capsule 10 mg PO Q6HPRN PRN spasms 01/07/24
dupilumab 300 mg/2 mL subcutaneous 300 mg SC Q2W Autoimmune Disorder 01/07/24
pen injector (Dupixent)
gabapentin 300 mg capsule 300 mg PO HS Pain 01/07/24
ibuprofen 200 mg tablet (Advil) 200 mg PO Q6H PRN moderate pains 01/07/24
omeprazole 20 mg tablet,delayed 20 mg PO BID GERD 01/07/24
release
oxycodone 5 mg tablet 5 mg PO Q6HPRN PRN severe pain 01/07/24
prednisone 10 mg tablet 30 mg PO DIRECTED INFLAMMATION 01/07/24
sodium chloride 3 % for 2 ml inhalation R TID 01/07/24
nebulization Lung/Breathing Issues
tramadol 50 mg tablet 50 mg PO Q4H Pain 01/07/24
--- NOTE | 2024-01-10 10:00 | W.PN.HOSP.TC ---
Today's Communication/Plan
-
transfer to [place] has been initiated
Assessment / Plan
Assessment / Plan
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
weakness and bilateral elbow pain and weakness. Patient could not sleep due to the pain.�Patient was taking Oxy and Advil with minimal relief. He felt unsteady on his feet and could not walk.
Patient was evaluated by neurology in the ED with plan to initiate IVIG, and heme CS
A/P:
# Increased BL LE weakness, new onset BL UE weakness and numbness, concern for relapse/progression into CIDP vs eosinophilic granulomatosis with polyangiitis.
s/p IVIG x3
Cont V steroid methylprednisone per neuro (cont BILINGUAL RECRUITER PPI for gastric protection while on steroid)
monitor NIF/VC TID
Pain control with Gabapentin 400 mg HS, 100 mg daily ; also BILINGUAL RECRUITER oxycodone 10 mg Q 4H PRN , pain is under control
Neuro on board
Check EMG
There is now concern of eosinophilic granulomatosis with polyangiitis,
[facility]. Unfortunately after discussion with our GS, vascular surgery and neurosurgery groups, none of our surgical specialists have experience performing sural nerve biopsy (consults cancelled)
d/w Rheum, recc transfer to [place] for further work up and sural nerve biopsy
# Concern for lumbar and thoracic marrow infiltrative disease
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
Rheumatology on board
# Recent COVID infection ~2 weeks BILINGUAL RECRUITER
COVID neg this admission
# leukocytosis likely reactive and steroid induced
blood culture obtained from admission negative for growth
# Hyponatremia may be due to hypovolemic from diarrhea BILINGUAL RECRUITER, resolved
monitor clinically for diarrhea
Observe off IVF, follow sodium level
# Diarrhea has recurred during hospital course
C Diff and norovirus negative
monitor clinically
# Possible spinal cord compression at T5-T6 from canal stenosis due to disc herniation, noted on thoracic MRI 12/15/2023
This was reviewed with the neurosurgery Dr Mathur, who felt that the compression is not impressive, hence pt's symptom is NOT structural in etiology
Given pt has somewhat improved symptoms, repeat MRI is not felt needed currently, cont to monitor closely
# recent diagnosis of allergic rhinitis/asthma
nebs from home continued
DVT prophylaxis--Lovenox SQ
CODE STATUS--full code
DW Neuro, GS/vascular surgery/neurosurgery
DW at bedside extensively
total time spent 60 min
Anticipated Discharge: > 48 hours
Subjective/Interval History
-
Date of Service: January 10, 2024
Objective Data
-
Labs:
Laboratory Results
01/10/24
04:56
WBC 12.2 H
Hgb 10.9 L
Hct 33.2 L
Plt Count 380
Sodium 137
Potassium 4.2
Chloride 103
Carbon Dioxide 26
BUN 29 H
Creatinine 0.5 L
Glucose 167 H
Calcium 9.0
Vital Signs:
Vital Signs
Temp Pulse Resp BP Pulse Ox
36.4 C 74 13 125/72 96
01/10/24 08:00 01/10/24 08:00 01/10/24 08:00 01/10/24 08:00 01/10/24 08:42
I&O
01/09/24 01/10/24 01/11/24
06:59 06:59 06:59
Intake Total 480 / 480 580 / 580
Output Total 950 / 950
Balance 480 / 480 -370 / -370
Review of Systems
-
Musculoskeletal: Reports Muscle Weakness (BL LE weakness, BL arm weakness)
Physical Exam
-
General: Well Developed, Well Nourished, No Apparent Distress, Comfortable and Conversant
Respiratory: Clear to Auscultation and Non Labored Respirations; Negative Accessory Resp Muscle Use
Cardiac: Regular Rhythm and S1/S2
GI: Soft
Neuro: Awake, Alert and Other (decreased reflexes BL LE and BL UE)
Psych: Calm and Intact Judgement/Insight
Data Reviewed
-
Labs: Labs Reviewed by me
[2024-01-10 10:32] LABS: Erythrocyte Sed Rate 43 mm/hour (0-20)
--- NOTE | 2024-01-10 12:49 | CON.RHM ---
Assessment/Plan
-
Continue pulse dose steroids
Awaiting transfer to [facility]
History of Present Illness
-
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 He is s/p 3 IVIG, on day 4 of 1000 methylprednisolone IV.� Today he notes improvement in
his lower extremity weakness. Continued right foot drop. Denies cough or SOB. Notes rhinorrhea. He continues to have loose stools, notes skin of abdomen feels tender, however could be due to Lovenox injections.� Sural nerve bx unable to be done at
[place], awaiting transfer to [facility].�
Review of Systems
-
General: Shortness of Breath: No and Numbness: Yes
Connective Tissue: Rash: No
Data Reviewed
Patient Allergies
Allergy/AdvReac Type Severity Reaction Status Date / Time
No Known Allergies Allergy Verified 01/07/24 17:40
Physical Exam
-
Constitutional: Alert and Oriented
Abdomen: Soft and Non Tender
Neurological: Other (Right foot 0/5 dorsiflexion, plantarflexion intact. Full strength of UE and left LE. )
Psych: Appropriate Behavior and Speech Appropriate
[2024-01-10] MEDS: OMNIPAQUE 50 ML PO (13:32)
[2024-01-10] MEDS: SOLU-MEDROL 258 MG IV (14:37)
--- NOTE | 2024-01-10 15:49 | CM ---
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 Room air. Receiving
IV methylprednisone. PT recommends HH, OT recommends home with assist. Plan transfer to [facility] for further work up and sural nerve biopsy.
Notified by Director of need to complete Buy Back Agreement for [facility] transfer. Agreement signed by Hospital Network Support Administrator & Dr Romero.
Met with patient and Maddie; explained Buy Back agreement; patient states he is unable to sign due to weakness & numbness right hand. signed agreement. Patient aware that he may need a RW at final discharge that was used when he
worked with PT & OT.
Spoke with Cathleen Emery, Precert Coordinator, [facility] (ph [phone], fax [phone]); agreement faxed and fax confirmation obtained- copies in chart. The accepting physician is Dr Sherita Mallory. Confirmed patient will go to the main [facility] at
[address] [place] [address].
Plan transfer to [facility] when bed is available.
--- NOTE | 2024-01-10 17:10 | PTCARENOTE ---
Rec'd pt this AM. Vital signs stable. Pt remains with weakness in B/L hands and feet. RTC from [facility], no bed available tonight. Will call tomorrow with update. Pt updated
[2024-01-10] MEDS: LOVENOX 40 MG SC (18:15)
[2024-01-10] MEDS: SINGULAIR 10 MG PO (18:15)
--- NOTE | 2024-01-10 20:54 | PTCARENOTE ---
Pt c/o 04/23 b/l hand pain, PRN pain med given (see MAR). VSS.
[2024-01-10] MEDS: NEURONTIN 400 MG PO (21:50)
[2024-01-11] VITALS (12 sets, daily range): BP systolic 114–148; BP diastolic 55–84
[2024-01-11] MEDS: ROXICODONE 10 MG PO ×4 (00:38→23:27)
[2024-01-11] MEDS: PROTONIX 20 MG PO ×2 (05:20→17:08)
[2024-01-11 05:38] LABS: % Basophils 0.1 % (0-2); % Lymphocytes 8.3 % (20.5-51.1); % Monocytes 3.3 % (1.7-9.3); % Neutrophils 87.3 % (42.2-75.2); Absolute Immature Granulocytes 0.1 10^3/uL (0-0.05); Absolute Lymphocytes 0.7 10^3/uL (1.2-3.4); Absolute Monocytes 0.3 10^3/uL (0.1-0.6); Absolute Neutrophils 7.7 10^3/uL (1.4-6.5); Hematocrit 31.8 % (39.0-52.0); Hemoglobin 10.9 g/dL (13.0-18.0); Mean Corp Hgb Conc. 34.3 g/dL (33.0-37.0); Mean Corpuscular Hgb 28.2 pg (27.0-31.0); Mean Corpuscular Volume 82.2 fL (80.0-94.0); Mean Platelet Volume 9.5 fL (7.4-10.4); Nucleated Red Blood Cells % 0 % (-); Platelet Count 314 10^3/uL (130-400); Red Blood Cell Count 3.87 10^6/uL (4.70-6.10); Red Cell Dist. Width 14.9 % (11.5-14.5); White Blood Cell Count 8.9 10^3/uL (4.8-10.8)
[2024-01-11 06:11] LABS: Blood Urea Nitrogen 28 mg/dl (9-20); Calcium 8.6 mg/dl (8.4-10.2); Carbon Dioxide 25 mmol/L (22-30); Chloride 104 mmol/L (98-107); Estimated Creatinine Clearance > 125 ml/min; Glucose 164 mg/dl (70-99); Potassium 4.2 mmol/L (3.5-5.1); Sodium 133 mmol/L (135-145); eGFR > 60.00
[2024-01-11] MEDS: VENTOLIN NEBULES 2.5 MG INH ×3 (07:12→19:52)
[2024-01-11] MEDS: SODIUM CHLORIDE 3% FOR INHALATION 0.5 VIAL INH ×3 (07:13→19:52)
[2024-01-11] MEDS: PULMICORT 0.5 MG INH ×2 (07:13→19:52)
[2024-01-11] MEDS: NEURONTIN 100 MG PO (07:51)
--- NOTE | 2024-01-11 08:00 | W.PN.NEURO.1 ---
Today's Communication / Plan
-
-Finish high dose IV steroid day 5/ today
-Start Prednisone 60 mg daily tomorrow, ulcer prophylaxis
-Agree with plans for transfer and sural nerve biopsy
-Monitor respiratory status
-Gabapentin 100 mg for morning and 400 mg at night, uptitrate as needed for neuropathic pain and monitor for drowsiness
Will continue to follow
Neuro Assessment/Plan
Assessment
VANESSA MAGUIRE is a 53 year old M who has presented to the hospital with worsening neuropathic pain, distal>proximal upper and lower extremity weakness and ambulatory dysfunction with recent diagnosis of GBS.
Initially the diagnosis was thought to be Guillain-Umana� syndrome, however patient developed new deficits with a right foot last week and then has had some bilateral hand weakness and sensory changes represent new and progressive deficits. In
retrospect this was not Guillan Maryknoll' syndrome which is in general monophasic given development of new and progressive deficits due to neuropathy.
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
change in the hands as well.
Patient does show eosinophilia on CBC differential testing and also has asthma as well as a positive P ANCA. Has had weight loss of around 20-30 pounds as well.
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
Differential diagnosis includes
-Neuropathy due to other vasculitis such as polyangiitis or microscopic polyangiitis
-CIDP
-Paraneoplastic mediated polyneuropathy
Plan
-Repeat EMG today
-Consider CT chest/abd/pelvis
-3 day course of IVIG completed on 01/09/24
-Continue IVSM 1g once daily x 3-5 days depending upon course; day #4 today 01/10/24
-Continue gabapentin 300mg qhs
-Fall precautions, neuro checks
-Appreciate h/onc evaluation; rheum has been consulted as well.
-Vital capacity/NIF TID--stable
-Concern raised for repeating spinal imaging--will hold off for now given improvement in symptoms.
-Will continue to follow.
Subjective/Objective
Subjective Data
Date of Service: January 11, 2024
No acute events, did use one dose Oxycodone for right foot and leg pain, denies excessive drowsiness, discussed plans for transfer, sural nerve biopsy, thoughts on etiology of neuropathy and treatment moving forward. No dyspnea.
Objective Data
Vital Signs
Temp Pulse Resp BP Pulse Ox
97.8 F 58 18 134/82 94
01/11/24 03:20 01/11/24 07:17 01/11/24 07:17 01/11/24 06:00 01/11/24 07:17
Lab Results
01/11/24 05:19
01/11/24 05:19
Sodium 133 mmol/L (135-145) L 01/11/24 05:19
Potassium 4.2 mmol/L (3.5-5.1) 01/11/24 05:19
BUN 28 mg/dl (9-20) H 01/11/24 05:19
Glucose 164 mg/dl (70-99) H 01/11/24 05:19
Calcium 8.6 mg/dl (8.4-10.2) 01/11/24 05:19
Patient Allergies
No Known Allergies Allergy (Verified 01/07/24 17:40)
Review of Systems
-
History Source: Patient
All other systems: Reviewed and negative
Constitutional: No Symptoms
EENT: No Symptoms Reported
Respiratory: No Symptoms
Cardiac: No Symptoms
Abdomen/GI: No Symptoms
Genitourinary: No Symptoms
Musculoskeletal: No Symptoms
Skin: No Symptoms
Neuro: Weakness and Numbness
Endocrine: No Symptoms
Hematologic / Lymphatic: No Symptoms
Allergy / Immunology: No Symptoms
Physical Exam
-
General: No Apparent Distress and Comfortable; Negative Cachectic
Eyes: No Ptosis
HEENT: Normocephalic
Neck: No Bruits Bilaterally
Respiratory: No Dyspnea; Negative Wheezes or Accessory Resp Muscle Use
Cardiac: Regular Rhythm and No Murmur
GI: Soft and Non-tender
Skin: Warm and Dry; Negative Rash
Psych: Confused and Intact Judgement/Insight
Extended Neurological Exam
Attention Span & Concentration: Awake, Alert, Interactive and No Difficulty with 2 Step Request
Memory: Able to Recall
Tremor: Hand Tremor Absent
Involuntary Movement: None
Speech: Quality Unremarkable and Quantity Unremarkable; Negative Expressive Aphasia, Receptive Aphasia or Dysarthric
Cranial Nerve II: Left Eye: Pupillary Reactivity Unremarkable, Pupillary Size Unremarkable and Visual Gibbs Intact
Cranial Nerve II: Right Eye: Pupillary Reactivity Unremarkable, Pupillary Size Unremarkable and Visual Gibbs Intact
Cranial Nerves III, IV, : Extraocular Movement: Extraocular Movement Full in all Directions
Cranial Nerve VII: Facial Symmetry: Normal Facial Symmetry
Muscle Strength, Overall: Other (Right index finger flexion weakness, bilateral thumb opposition weakness, right ankle plantarflexion 4+/5, right ankle dorsiflexion 2/5, left ankle dorsiflexion 4+/5, elft ankle plantarflexion 5/5, hip flexion
shoulder abduction 5/5 bilaterally)
Deep Tendon Reflexes: Other (Absent in achilles bilaterally, 2+ symmetric patella, biceps, brachioradialis, triceps bilaterally)
Vibration Sensation: Reduced Moderately Distally
Touch Sensation: Pin Prick Reduced
Coordination: [id number] Testing Unremarkable
Data Reviewed
-
MRI Cervical Spine: Report Reviewed and Image Reviewed
MRI Thoracic Spine: Report Reviewed and Image Reviewed
MRI Lumbar Spine: Report Reviewed and Image Reviewed
Labs: Report Reviewed
EMG: Pending and Report Reviewed
--- NOTE | 2024-01-11 08:34 | W.PN.HOSP.TC ---
Today's Communication/Plan
-
Transfer to [place] when bed available
Assessment / Plan
Assessment / Plan
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
weakness and bilateral elbow pain and weakness. Patient could not sleep due to the pain.�Patient was taking Oxy and Advil with minimal relief. He felt unsteady on his feet and could not walk.
Patient was evaluated by neurology in the ED with plan to initiate IVIG, and heme CS
A/P:
# Increased BL LE weakness, new onset BL UE weakness and numbness, concern for relapse/progression into CIDP vs eosinophilic granulomatosis with polyangiitis.
Appreciate neurology input, differential diagnosis includes vasculitis, CIDP, paraneoplastic mediated polyneuropathy
S/p IVIG x3, continue IV methylprednisone D5/5 per neuro (cont TEMPLATE CUTTER PPI for gastric protection while on steroid)
Plan to transition to prednisone tomorrow, monitor NIF/VC TID
Pain control with Gabapentin 400 mg HS, 100 mg daily ; also TEMPLATE CUTTER oxycodone 10 mg Q 4H PRN , pain is under control
There is now concern for eosinophilic granulomatosis with polyangiitis
Appreciate rheumatology input, recommend sural nerve biopsy
Patient has been accepted for transfer to [place] for further work up and sural nerve biopsy
Transfer to [place] when bed available
# Concern for lumbar and thoracic marrow infiltrative disease
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
# Recent COVID infection ~2 weeks TEMPLATE CUTTER
COVID neg this admission
# Leukocytosis likely reactive and steroid induced
blood culture obtained from admission negative for growth
# Hyponatremia may be due to hypovolemic from diarrhea TEMPLATE CUTTER, resolved
Diarrhea improving, observe off IVF, follow sodium level
# Diarrhea has recurred during hospital course
C Diff and norovirus negative
Monitor clinically
# Possible spinal cord compression at T5-T6 from canal stenosis due to disc herniation, noted on thoracic MRI 12/15/2023
This was reviewed with the neurosurgery Dr Mathur, who felt that the compression is not impressive, hence pt's symptom is NOT structural in etiology
Given pt has somewhat improved symptoms, repeat MRI is not felt needed currently, cont to monitor closely
# Recent diagnosis of allergic rhinitis/asthma
Continue home nebs
DVT prophylaxis--Lovenox SQ
CODE STATUS--full code
Updated at bedside 01/11
Physical Exam
General: No acute distress
HEENT: Normocephalic, Atraumatic, EOMI, MMM
Respiratory: Clear to Auscultation bilaterally
Cardiac: Normal S1/S2, Regular Rate and Rhythm
GI: Soft, Nontender, Nondistended, Normal Bowel Sounds
Extremities: No Clubbing, Cyanosis, or Edema
Neuro: Decreased bilateral upper extremity and lower extremity reflexes
Right foot 0/5 dorsiflexion, plantarflexion intact. Full strength of UE and left LE.�
Unable to bend 2 fingers on right hand
Anticipated Discharge: Within 24 hours
Subjective/Interval History
-
Date of Service: January 11, 2024
Patient reports right foot pain. He also has bilateral hand paresthesias. No nausea, no vomiting, no constipation, no abdominal pain. No fever. Diarrhea improved.
Objective Data
-
Labs:
Laboratory Results
01/11/24
05:19
WBC 8.9
Hgb 10.9 L
Hct 31.8 L
Plt Count 314
Sodium 133 L
Potassium 4.2
Chloride 104
Carbon Dioxide 25
BUN 28 H
Creatinine 0.5 L
Glucose 164 H
Calcium 8.6
Vital Signs:
Vital Signs
Temp Pulse Resp BP Pulse Ox
97.8 F 58 18 134/82 94
01/11/24 03:20 01/11/24 07:17 01/11/24 07:17 01/11/24 06:00 01/11/24 07:17
I&O
01/10/24 01/11/24 01/12/24
06:59 06:59 06:59
Intake Total 580 / 580 480 / 480
Output Total 950 / 950 400 / 400
Balance -370 / -370 80 / 80
[2024-01-11] MEDS: SOLU-MEDROL 258 MG IV (11:08)
--- NOTE | 2024-01-11 15:48 | PTCARENOTE ---
Rec'd pt this AM. meds given for pain in hands and feet. spouse at bedside. awaiting bed at [facility]. As of this AM, no beds available. vital signs stable.
[2024-01-11] MEDS: SINGULAIR 10 MG PO (17:08)
[2024-01-11] MEDS: LOVENOX 40 MG SC (17:08)
[2024-01-11] MEDS: NEURONTIN 400 MG PO (22:04)
--- NOTE | 2024-01-11 22:12 | PTCARENOTE ---
[facility] transport updated, no bed available. Pt c/o pain in his b/l hands and feet, PRN pain med given (see JAN).
[2024-01-12] VITALS (12 sets, daily range): BP systolic 112–142; BP diastolic 54–79
[2024-01-12] MEDS: PROTONIX 20 MG PO ×2 (05:21→18:01)
[2024-01-12] MEDS: ROXICODONE 10 MG PO ×4 (05:35→22:30)
[2024-01-12 06:13] LABS: Blood Urea Nitrogen 28 mg/dl (9-20); Calcium 8.7 mg/dl (8.4-10.2); Carbon Dioxide 28 mmol/L (22-30); Chloride 104 mmol/L (98-107); Estimated Creatinine Clearance > 125 ml/min; Glucose 152 mg/dl (70-99); Potassium 4.1 mmol/L (3.5-5.1); Sodium 133 mmol/L (135-145); eGFR > 60.00
[2024-01-12] MEDS: SODIUM CHLORIDE 3% FOR INHALATION 0.5 VIAL INH ×3 (07:54→19:56)
[2024-01-12] MEDS: PULMICORT 0.5 MG INH ×2 (07:54→19:56)
[2024-01-12] MEDS: VENTOLIN NEBULES 2.5 MG INH ×3 (07:54→19:56)
--- NOTE | 2024-01-12 08:14 | W.PN.NEURO.1 ---
Today's Communication / Plan
-
-Increase Gabapentin to 200 mg for morning and 600 mg at night for neuropathic pain
-Starting PO steroid 60 mg Prednisone daily
-Encouraged up out of bed, strength exercises, PT/OT as able
-Monitor neurologic exam and respiratory function
-Pending transfer to [place] for sural nerve biopsy
Will continue to follow
Neuro Assessment/Plan
Assessment
VANESSA MAGUIRE is a 53 year old M who has presented to the hospital with worsening neuropathic pain, distal>proximal upper and lower extremity weakness and ambulatory dysfunction with recent diagnosis of GBS.
Initially the diagnosis was thought to be Guillain-Umana� syndrome, however patient developed new deficits with a right foot last week and then has had some bilateral hand weakness and sensory changes represent new and progressive deficits. In
retrospect this was not Guillan Lindsay' syndrome which is in general monophasic given development of new and progressive deficits due to neuropathy.
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
change in the hands as well.
Patient does show eosinophilia on CBC differential testing and also has asthma as well as a positive P ANCA. Has had weight loss of around 20-30 pounds as well.
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
Differential diagnosis includes
-Neuropathy due to other vasculitis such as polyangiitis or microscopic polyangiitis
-CIDP
-Paraneoplastic mediated polyneuropathy
Weakly positive LGI1 antibody on paraneoplastic antibody testing is very likely to be insignificant, generally LGI1 antibodies produce an encephalitis which the patient has no signs of. His other organ involvements of sinusitis, asthma, and
eosinophilia I think make a systemic vasculitis more likely. Additionally the patient had recieved IVIG 3 weeks before the antibody test which could also produce falsely positive antibodies.
Subjective/Objective
Subjective Data
Date of Service: January 12, 2024
Neuropathic pain in the right foot and fingers is short and intermittent, a bit more bothersome yesterday. No dysphagia or dysarthria.
Objective Data
Vital Signs
Temp Pulse Resp BP Pulse Ox
97.7 F 66 16 112/76 97
01/12/24 03:21 01/12/24 07:57 01/12/24 07:57 01/12/24 06:00 01/12/24 07:57
Lab Results
01/11/24 05:19
01/12/24 05:34
Sodium 133 mmol/L (135-145) L 01/12/24 05:34
Potassium 4.1 mmol/L (3.5-5.1) 01/12/24 05:34
BUN 28 mg/dl (9-20) H 01/12/24 05:34
Glucose 152 mg/dl (70-99) H 01/12/24 05:34
Calcium 8.7 mg/dl (8.4-10.2) 01/12/24 05:34
Patient Allergies
No Known Allergies Allergy (Verified 01/07/24 17:40)
Review of Systems
-
History Source: Patient
All other systems: Reviewed and negative
Constitutional: No Symptoms
EENT: No Symptoms Reported
Respiratory: No Symptoms
Cardiac: No Symptoms
Abdomen/GI: No Symptoms
Genitourinary: No Symptoms
Musculoskeletal: No Symptoms
Skin: No Symptoms
Neuro: Weakness and Numbness
Endocrine: No Symptoms
Hematologic / Lymphatic: No Symptoms
Allergy / Immunology: No Symptoms
Physical Exam
-
General: Comfortable
Eyes: No Ptosis
HEENT: Normocephalic
Neck: No Bruits Bilaterally
Respiratory: Clear to Auscultation
Cardiac: Regular Rhythm
GI: Normal Bowel Sounds
Skin: Unremarkable
Extremities: No Clubbing
Psych: Unremarkable
Extended Neurological Exam
Mood & Affect: Mood Unremarkable and Affect Unremarkable
Attention Span & Concentration: Awake, Alert and Interactive
Memory: Unremarkable
Tremor: Hand Tremor Absent
Involuntary Movement: None
Speech: Quality Unremarkable and Quantity Unremarkable; Negative Expressive Aphasia or Receptive Aphasia
Cranial Nerve II: Left Eye: Pupillary Reactivity Unremarkable, Pupillary Size Unremarkable and Visual Gibbs Intact
Cranial Nerve II: Right Eye: Pupillary Reactivity Unremarkable, Pupillary Size Unremarkable and Visual Gibbs Intact
Cranial Nerves III, IV, : Extraocular Movement: Extraocular Movement Full in all Directions
Cranial Nerve V: Facial Sensation: Facial Sensation Unremarkable to Cold
Cranial Nerve VII: Facial Symmetry: Normal Facial Symmetry
Muscle Strength, Overall: Other (Weakness of right ankle dorsiflexion barely 3/5, bilateral plantarflexion 5/5, left ankle dorsiflexion 4+/5, hip flexion adduction abduction 5/5, shoulder abduction adduction arm flexion extension neck flexion
extension 5/5, weaknses of right index finger flexion and bilateral thumb opposition)
Muscle Bulk & Tone: Bulk Unremarkable
Pronator Drift: No Drift in Upper Extremities
Deep Tendon Reflexes: Other (Absent achilles, present patella brachioradialis biceps and triceps 2+ and symmetric)
Vibration Sensation: Reduced Mildly Distally
Touch Sensation: Pin Prick Reduced
Babinski Sign: Absent Bilaterally
Data Reviewed
-
MRI Cervical Spine: Report Reviewed and Image Reviewed
MRI Thoracic Spine: Report Reviewed and Image Reviewed
MRI Lumbar Spine: Report Reviewed and Image Reviewed
--- NOTE | 2024-01-12 08:58 | W.PN.HOSP.TC ---
Today's Communication/Plan
-
Transfer to [place] when bed available
Assessment / Plan
Assessment / Plan
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
weakness and bilateral elbow pain and weakness. Patient could not sleep due to the pain.�Patient was taking Oxy and Advil with minimal relief. He felt unsteady on his feet and could not walk.
Patient was evaluated by neurology in the ED with plan to initiate IVIG, and heme CS
A/P:
# Increased BL LE weakness, new onset BL UE weakness and numbness, concern for relapse/progression into CIDP vs eosinophilic granulomatosis with polyangiitis.
Appreciate neurology input, differential diagnosis includes vasculitis, CIDP, paraneoplastic mediated polyneuropathy
S/p IVIG x3, s/p IV methylprednisone x 5 days per neuro (cont PLACE CHANGE ROOF BOLTER PPI for gastric protection while on steroid)
Now on prednisone, monitor NIF/VC TID
Pain control with Gabapentin 400 mg HS, 100 mg daily ; also PLACE CHANGE ROOF BOLTER oxycodone 10 mg Q 4H PRN , pain is under control
There is now concern for eosinophilic granulomatosis with polyangiitis
Appreciate rheumatology input, recommend sural nerve biopsy
Patient has been accepted for transfer to [place] for further work up and sural nerve biopsy
Transfer to [place] when bed available
# Concern for lumbar and thoracic marrow infiltrative disease
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
# Recent COVID infection ~[address] CHANGE ROOF BOLTER
COVID neg this admission
# Leukocytosis likely reactive and steroid induced
Blood culture obtained from admission negative for growth
# Hyponatremia may be due to hypovolemic from diarrhea PLACE CHANGE ROOF BOLTER, resolved
Diarrhea improving, observe off IVF, follow sodium level
# Diarrhea has recurred during hospital course
C Diff and norovirus negative
Monitor clinically
# Possible spinal cord compression at T5-T6 from canal stenosis due to disc herniation, noted on thoracic MRI 12/15/2023
This was reviewed with the neurosurgery Dr Mathur, who felt that the compression is not impressive, hence pt's symptom is NOT structural in etiology
Given pt has somewhat improved symptoms, repeat MRI is not felt needed currently, cont to monitor closely
# Recent diagnosis of allergic rhinitis/asthma
Continue home nebs
DVT prophylaxis--Lovenox SQ
CODE STATUS--full code
Updated at bedside
Physical Exam
General: No acute distress
HEENT: Normocephalic, Atraumatic, EOMI, MMM
Respiratory: Clear to Auscultation bilaterally
Cardiac: Normal S1/S2, Regular Rate and Rhythm
GI: Soft, Nontender, Nondistended, Normal Bowel Sounds
Extremities: No Clubbing, Cyanosis, or Edema
Neuro: Decreased bilateral upper extremity and lower extremity reflexes
Right foot 0/5 dorsiflexion, plantarflexion intact. Full strength of UE and left LE.�
Unable to bend 2 fingers on right hand
Anticipated Discharge: Within 24 hours
Subjective/Interval History
-
Date of Service: January 12, 2024
Patient's right hand weakness continues to improve.
Objective Data
-
Labs:
Laboratory Results
01/12/24
05:34
Sodium 133 L
Potassium 4.1
Chloride 104
Carbon Dioxide 28
BUN 28 H
Creatinine 0.6 L
Glucose 152 H
Calcium 8.7
Vital Signs:
Vital Signs
Temp Pulse Resp BP Pulse Ox
97.7 F 66 16 112/76 97
01/12/24 03:21 01/12/24 07:57 01/12/24 07:57 01/12/24 06:00 01/12/24 07:57
I&O
01/11/24 01/12/24 01/13/24
06:59 06:59 06:59
Intake Total 480 / 480 200 / 200
Output Total 400 / 400 900 / 900
Balance 80 / 80 -700 / -700
[2024-01-12] MEDS: NEURONTIN 100 MG PO (09:05)
[2024-01-12] MEDS: DELTASONE 60 MG PO (09:06)
--- NOTE | 2024-01-12 10:09 | W.PN.ONC ---
Today's Communication / Plan
-
Laboratory studies for clonal eosinophilia were negative most recent differentials are without eosinophilia
Await transfer
Impression
Impression
Polyneuropathy consistent with eosinophilia
Reactive leukocytosis with eosinophilia
Plan
Plan
Recurrent admission with progressive weakness, now felt to be NOT c/w GBS with c/f GBS
Eosinophilia again present on differential which had improved with tx of GBS symptoms on last admission. Pt was also noted to have BM uptake on MRI.
- Tryptase normal, IgE modestly elevated as is IgG. Not suggestive of clonal process in marrow
- Flow cytometry negative for lymphoproliferative disorder with caveat that pt had been on steroids.
- Await Chris-2
- With delivery driver mutation panel otherwise negative, will hold off on bone marrow biopsy for now. He was
Paraneoplastic antibody panel positive for LGI1 antibody with low titer, defer to Neurology for interpretation. Results on chart.
Subjective/Objective
Subjective/Objective
Patient continues to have migratory discomfort and intermittent weakness.
Vital Signs:
Vital Signs
Temp Pulse Resp BP Pulse Ox
97.7 F 57 15 126/79 96
01/12/24 03:21 01/12/24 08:00 01/12/24 08:00 01/12/24 08:00 01/12/24 08:00
PE: Unchanged
Lab Results:
Laboratory Data
WBC 8.9 10^3/uL (4.8-10.8) 01/11/24 05:19
Hgb 10.9 g/dL (13.0-18.0) L 01/11/24 05:19
Plt Count 314 10^3/uL (130-400) 01/11/24 05:19
eGFR > 60.00 01/12/24 05:34
[2024-01-12] MEDS: SINGULAIR 10 MG PO (18:01)
[2024-01-12] MEDS: LOVENOX 40 MG SC (18:02)
[2024-01-12] MEDS: NEURONTIN 600 MG PO (21:19)
--- NOTE | 2024-01-12 23:28 | PTCARENOTE ---
Report given to Buck ALATORRE at [facility], all questions answered, patient and family made aware of POC. EMS unit arrived to unit at approx 2300, pt in NAD at time of DC.
--- NOTE | 2024-01-13 08:25 | W.DCSUMMARY ---
Discharge Summary
Discharge Data
Date of Admission: 01/07/24
Date of Discharge: 01/13/24
-
Pending Results: No
Hospital Course
Discharge diagnosis:
Increased bilateral lower extremity weakness
New onset bilateral upper extremity weakness and numbness concerning for chronic idiopathic demyelinating polyneuropathy versus eosinophilic granulomatosis with polyangiitis
Recent coronavirus infection
Reactive leukocytosis from steroids
Hyponatremia
Subacute diarrhea
Possible spinal cord compression from canal stenosis due to disc herniation
Allergic rhinitis/asthma
Consults: Neurology, oncology, rheumatology
Hospital course:
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
extremities weakness and bilateral elbow pain and weakness.
Patient was seen in conjunction with neurology. He was treated with 3 days of IVIG, and 5 days of IV steroids. He was then transitioned to oral steroids.
There was possible cord compression at T5-T6 from canal stenosis due to disc herniation, noted on his thoracic MRI on 12/15/2023. This film was reviewed with neurosurgery, Dr. Roach, who felt that the compression is not the cause of his symptoms.
Patient was seen in conjunction with oncology and rheumatology as well. There was concern for chronic idiopathic demyelinating polyneuropathy versus eosinophilic granulomatosis with polyangiitis. Rheumatology recommends sural nerve biopsy, which
cannot be performed here. Patient has been accepted for transfer to [facility] for further workup.
Disposition: Transfer to [facility]
Discharge planning: Required 45 minutes
Discharge Plan
-
Patient Disposition: Acute Care Hospital
Discharge Orders:
Discharge Patient (As Directed); Ordered 01/11/24
Ordered By: Mandeep Murray
Discharge Date and Time
Discharge Date/Time: 01/13/24 01:31
--- NOTE | 2024-01-30 10:33 | OID.L.PAT ---
Pulmonary Nodule Pat Letter
- -
01/30/24
VANESSA MAGUIRE
[address]
[place], [place]
Kristin MENDEZ,
A pulmonary nodule was seen on an imaging study done by [facility]. This was reviewed by the [facility] Pulmonary Nodule Advisory Board and the following recommendation was made:
Recommendation: Based on current guidelines, no further follow up is necessary at this time
If you have any questions, please do not hesitate to contact your primary care physician. If you are in need of a Physician, you can go to [email or web address] and click on 'Find a Provider'. Type 'Family Medicine' in the search.
Oncology Nurse Navigator
[facility]
[phone]
--- NOTE | 2024-01-30 10:33 | OID.L.REC ---
Pulmonary Nodule Follow Up
- Recommendation
01/30/24
Pulmonary Nodule Review Recommendations
Your patient, VANESSA MAGUIRE, had a pulmonary nodule seen on an imaging study done on 01/10/24 in the [facility] Department.
This was reviewed by the [facility] Pulmonary Nodule Advisory Board and the following recommendation was made:
Recommendation: Based on current guidelines, no further follow up is necessary at this time
If you have any questions please do not hesitate to contact us.
Sincerely,
Oncology Nurse Navigator
[facility]
[phone]
== END 2024-01-13 01:31 | disposition short-term general hospital (02) | DRG 543 ==
LOC: IMU 19:09
PROVIDERS: Registered Nurse; ADMITTING PHYSICIAN Internal Medicine; ATTENDING PHYSICIAN Family Medicine; CONSULT PHYSICIAN Internal Medicine Hematology & Oncology; CONSULT PHYSICIAN Psychiatry & Neurology Neurology; EMERGENCY PHYSICIAN Emergency Medicine; FAMILY PHYSICIAN Family Medicine; OTHER PHYSICIAN Internal Medicine Rheumatology
PROC: 30233S1 Transfusion of Nonautologous Globulin into Peripheral Vein, Percutaneous Approach (ICD-10-PCS; 2024-01-07)
DX: M30.1 Polyarteritis with lung involvement [Churg-Strauss] (principal); D47.1 Chronic myeloproliferative disease; G61.81 Chronic inflammatory demyelinating polyneuritis; G61.0 Guillain-Barre syndrome; E87.1 Hypo-osmolality and hyponatremia; M51.04 Intervertebral disc disorders with myelopathy, thoracic region; R53.1 Weakness; D72.10 Eosinophilia, unspecified; M48.04 Spinal stenosis, thoracic region; R26.2 Difficulty in walking, not elsewhere classified; J45.909 Unspecified asthma, uncomplicated; E86.1 Hypovolemia; G60.8 Other hereditary and idiopathic neuropathies; R19.7 Diarrhea, unspecified; Z11.52 Encounter for screening for COVID-19; Z86.16 Personal history of COVID-19; Z80.9 Family history of malignant neoplasm, unspecified
CPT/HCPCS: 71260; 74177; 80048; 80053; 83690; 85025; 85027; 85652; 86140; 87040; 87070; 87324; 87449; 87798; 87811; 94640; 97110; 97116; 97163; 97166; 99284; J1569; Q9967